=== PATIENT | male | born 1950 | race Caucasian/White ===

== ENCOUNTER 2017-07-02 11:47 | Inpatient (IN) | payer MEDICARE, OTHER ==
[2017-07-02] MEDS: ASPIRIN 81 MG TAB PO (12:27)
[2017-07-02 12:39] LABS: ADD MAN DIFF? NO
[2017-07-02 12:40] LABS: BASOPHIL # 0.1 10^3/ul (0.0-0.1); BASOPHILS % 0.9 % (0.0-2.0); EOSINOPHILS # 0.1 10^3/ul (0.0-0.5); HEMATOCRIT 39.2 % (42.0-52.0); HEMOGLOBIN 12.4 g/dl (14.0-18.0); LYMPHOCYTES # 1.9 10^3/ul (0.8-2.9); LYMPHOCYTES % 29.7 % (15.0-51.0); MEAN CORPUSCULAR HEMOGLOBIN 29.6 pg (29.0-33.0); MEAN CORPUSCULAR HGB CONC 31.6 g/dl (32.0-37.0); MEAN CORPUSCULAR VOLUME 93.6 fl (82.0-101.0); MEAN PLATELET VOLUME 10.8 fl (7.4-10.4); MONOCYTE # 0.5 10^3/ul (0.3-0.9); MONOCYTES % 8.1 % (0.0-11.0); NEUTROPHIL # 3.8 10^3/ul (1.6-7.5); NEUTROPHILS % 58.8 % (39.0-77.0); PLATELET COUNT 193 10^3/UL (140-415); RED BLOOD COUNT 4.19 10^6/ul (4.70-6.10); RED CELL DISTRIBUTION WIDTH 13.9 % (11.5-14.5)
[2017-07-02 12:40] LABS: WHITE BLOOD COUNT 6.4 10^3/ul (4.8-10.8)
[2017-07-02 13:00] LABS: ANION GAP 15 (8-16); BLOOD UREA NITROGEN 38 mg/dl (7-20); CALCIUM 9.1 mg/dl (8.4-10.2); CARBON DIOXIDE 28 mmol/L (21-31); CHLORIDE 108 mmol/L (97-110); CREATININE 1.92 mg/dl (0.61-1.24); GLUCOSE 104 mg/dl (70-220); SODIUM 146 mmol/L (135-144)
[2017-07-02] MEDS ORDERED: ONDANSETRON 4 MG INJ IV ×2 (14:00→14:30)
[2017-07-02] MEDS ORDERED: ACETAMINOPHEN 325 MG TAB PO ×2 (14:00→14:30)
[2017-07-02] MEDS ORDERED: morphine 2 MG INJ IV ×2 (14:30)
[2017-07-02] MEDS ORDERED: NACL 0.9% 3 ML SYG IV (14:30)
[2017-07-02] MEDS ORDERED: NITROGLYCERIN (SL) 0.4 MG TAB SL (14:30)
[2017-07-02] MEDS ORDERED: ACETAMINOPHEN 650 MG SUPP PR (14:30)
[2017-07-02] MEDS: HYDROCODONE/APAP (5/325) TAB PO (14:54)
[2017-07-02] MEDS: HEPARIN 1000 UNITS/ML 10 ML INJ IV (14:57)
[2017-07-02] MEDS: CLOPIDOGREL 75 MG TAB PO (15:03)
[2017-07-02 15:26] LABS: PROTIME 13.3 Sec (11.9-14.9)
[2017-07-02 15:27] LABS: PARTIAL THROMBOPLASTIN TIME 32.6 Sec (25.0-35.0)
[2017-07-02] MEDS: HEPARIN 25000 UNITS/250 ML 250 ML IV (16:36)
[2017-07-02 19:56] LABS: ADD MAN DIFF? NO
[2017-07-02 19:57] LABS: BASOPHIL # 0.1 10^3/ul (0.0-0.1); BASOPHILS % 0.8 % (0.0-2.0); EOSINOPHILS # 0.1 10^3/ul (0.0-0.5); EOSINOPHILS % 1.6 % (0.0-7.0); HEMATOCRIT 38.5 % (42.0-52.0); HEMOGLOBIN 11.9 g/dl (14.0-18.0); LYMPHOCYTES # 2.8 10^3/ul (0.8-2.9); LYMPHOCYTES % 35.6 % (15.0-51.0); MEAN CORPUSCULAR HGB CONC 30.9 g/dl (32.0-37.0); MEAN CORPUSCULAR VOLUME 93.7 fl (82.0-101.0); MEAN PLATELET VOLUME 10.8 fl (7.4-10.4); MONOCYTE # 0.6 10^3/ul (0.3-0.9); MONOCYTES % 8.1 % (0.0-11.0); NEUTROPHIL # 4.2 10^3/ul (1.6-7.5); NEUTROPHILS % 53.3 % (39.0-77.0); PLATELET COUNT 190 10^3/UL (140-415); RED BLOOD COUNT 4.11 10^6/ul (4.70-6.10)
[2017-07-02 19:57] LABS: WHITE BLOOD COUNT 7.9 10^3/ul (4.8-10.8)
[2017-07-02 20:09] LABS: ADD UMIC NO; UR ASCORBIC ACID NEGATIVE (NEGATIVE); UR BILIRUBIN (Dip) NEGATIVE (NEGATIVE); UR BLOOD (Dip) NEGATIVE (NEGATIVE); UR CLARITY CLEAR (CLEAR); UR COLOR YELLOW (YELLOW); UR GLUCOSE (Dip) NEGATIVE (NEGATIVE); UR KETONES (Dip) NEGATIVE (NEGATIVE); UR LEUKOCYTE ESTERASE (Dip) NEGATIVE Leu/ul (NEGATIVE); UR NITRITE (Dip) NEGATIVE (NEGATIVE); UR SPECIFIC GRAVITY (Dip) 1.021 (1.003-1.030); UR TOTAL PROTEIN (Dip) NEGATIVE (NEGATIVE); UR UROBILINOGEN (Dip) NEGATIVE (NEGATIVE)
[2017-07-02] MEDS: SOD CHLORIDE 0.9% 1,000 ML IV (20:11)
[2017-07-02 20:13] LABS: CREATINE KINASE 93 IU/L (23-200)
[2017-07-02 20:27] LABS: CK INDEX 2.3
[2017-07-02 20:30] LABS: CK-MB 2.11 ng/ml (0.0-2.4)
[2017-07-02 20:31] LABS: SODIUM,URINE RANDOM 63 mmol/L (30-90)
[2017-07-02 20:31] LABS: CREATININE,URINE RANDOM 183.73 mg/dl (20-370)
[2017-07-02 20:35] LABS: AMPHETAMINE/METHAMPHETAMINE Negative (NEGATIVE); BARBITURATES Negative (NEGATIVE); BENZODIAZEPINES Negative (NEGATIVE); CANNABINOIDS Negative (NEGATIVE); COCAINE Negative (NEGATIVE); OPIATES Negative (NEGATIVE)
[2017-07-02] MEDS: ATORVASTATIN 80 MG TAB PO (22:39)
[2017-07-02 23:35] LABS: CREATINE KINASE 85 IU/L (23-200)
[2017-07-02 23:38] LABS: PARTIAL THROMBOPLASTIN TIME 68.3 Sec (25.0-35.0)
[2017-07-02 23:42] LABS: CK INDEX 2.1
[2017-07-02 23:43] LABS: CK-MB 1.79 ng/ml (0.0-2.4)
[2017-07-03 01:37] LABS: CREATINE KINASE 86 IU/L (23-200)
[2017-07-03 01:50] LABS: CK INDEX 2.1
[2017-07-03] MEDS: PANTOPRAZOLE 40 MG INJ IV (06:00)
[2017-07-03] MEDS: DIPHENHYDRAMINE 50 MG CAP PO (07:00)
[2017-07-03] MEDS: DIAZEPAM 5 MG TAB PO (07:00)
[2017-07-03 07:35] LABS: ADD MAN DIFF? NO
[2017-07-03 07:41] LABS: BASOPHIL # 0.1 10^3/ul (0.0-0.1); BASOPHILS % 0.8 % (0.0-2.0); EOSINOPHILS # 0.1 10^3/ul (0.0-0.5); EOSINOPHILS % 2.3 % (0.0-7.0); HEMATOCRIT 36.6 % (42.0-52.0); HEMOGLOBIN 11.4 g/dl (14.0-18.0); LYMPHOCYTES # 2.1 10^3/ul (0.8-2.9); LYMPHOCYTES % 34.9 % (15.0-51.0); MEAN CORPUSCULAR HEMOGLOBIN 29.2 pg (29.0-33.0); MEAN CORPUSCULAR HGB CONC 31.1 g/dl (32.0-37.0); MEAN CORPUSCULAR VOLUME 93.8 fl (82.0-101.0); MEAN PLATELET VOLUME 11.1 fl (7.4-10.4); MONOCYTE # 0.5 10^3/ul (0.3-0.9); NEUTROPHIL # 3.2 10^3/ul (1.6-7.5); NEUTROPHILS % 53.3 % (39.0-77.0); PLATELET COUNT 181 10^3/UL (140-415); RED CELL DISTRIBUTION WIDTH 13.9 % (11.5-14.5)
[2017-07-03 07:52] LABS: HEMOGLOBIN A1C 5.5 % (0-5.9)
[2017-07-03 08:09] LABS: INR 1.06; PROTIME 13.9 Sec (11.9-14.9); PT RATIO 1.1
[2017-07-03 08:10] LABS: PARTIAL THROMBOPLASTIN TIME 62.6 Sec (25.0-35.0)
[2017-07-03 08:48] LABS: ALANINE AMINOTRANSFERASE 66 IU/L (13-69); ALBUMIN 3.7 g/dl (3.3-4.9); ALBUMIN/GLOBULIN RATIO 1.15; ALKALINE PHOSPHATASE 87 IU/L (42-121); ANION GAP 12 (8-16); ASPARTATE AMINO TRANSFERASE 48 IU/L (15-46); BILIRUBIN,INDIRECT 0.5 mg/dl (0-1.1); BILIRUBIN,TOTAL 0.5 mg/dl (0.2-1.3); BLOOD UREA NITROGEN 28 mg/dl (7-20); CALCIUM 8.7 mg/dl (8.4-10.2); CARBON DIOXIDE 25 mmol/L (21-31); CHLORIDE 111 mmol/L (97-110); CHOL/HDL RATIO 6.1 RATIO; CHOLESTEROL 221 mg/dl (100-200); GLUCOSE 100 mg/dl (70-220); HDL CHOLESTEROL 36 mg/dl (30-78); LDL CHOLESTEROL,CALCULATED 156 mg/dl; MAGNESIUM 2.1 mg/dl (1.7-2.5); SODIUM 144 mmol/L (135-144); TOTAL PROTEIN 6.9 g/dl (6.1-8.1); TRIGLYCERIDES 144 mg/dl (0-149)
[2017-07-03 09:00] LABS: FREE THYROXINE INDEX (Calc) 0.48 ug/ml (0.65-3.89); T3 UPTAKE 29.9 % (23.5-40.5)
[2017-07-03 09:09] LABS: T4 (THYROXINE) 1.6 ug/dl (5.5-11.0)
[2017-07-03] MEDS: SOD CHLORIDE 0.9% 1,000 ML IV ×3 (11:14→21:14)
[2017-07-03] MEDS ORDERED: MIDAZOLAM 1 MG/ML 2 ML INJ (13:06)
[2017-07-03] MEDS ORDERED: FENTAnyl 50 MCG/ML VIAL (13:06)
[2017-07-03] MEDS ORDERED: HEPARIN 1000 UNITS/ML 10 ML INJ (13:07)
[2017-07-03] MEDS ORDERED: LIDOCAINE 1% (MDV) 20 ML INJ (13:07)
[2017-07-03] MEDS ORDERED: NITROGLYCERIN (IC) 100 MCG/ML INJ (13:07)
[2017-07-03] MEDS ORDERED: VERAPAMIL 5 MG INJ (13:07)
[2017-07-03] MEDS ORDERED: ONDANSETRON 4 MG INJ IV (14:00)
[2017-07-03] MEDS ORDERED: ACETAMINOPHEN 325 MG TAB PO (14:00)
[2017-07-03] MEDS ORDERED: morphine LIQ (10 MG/5 ML) CUP PO (15:30)
[2017-07-03] MEDS ORDERED: CEFAZOLIN 2 GM/50 ML (PMX) 50 ML IVPB (17:00)
[2017-07-03 19:27] LABS: ADD MAN DIFF? NO
[2017-07-03 19:30] LABS: WHITE BLOOD COUNT 5.3 10^3/ul (4.8-10.8)
[2017-07-03 19:30] LABS: BASOPHIL # 0.1 10^3/ul (0.0-0.1); BASOPHILS % 1.1 % (0.0-2.0); EOSINOPHILS # 0.1 10^3/ul (0.0-0.5); EOSINOPHILS % 1.9 % (0.0-7.0); HEMATOCRIT 37.4 % (42.0-52.0); HEMOGLOBIN 11.5 g/dl (14.0-18.0); LYMPHOCYTES # 1.8 10^3/ul (0.8-2.9); LYMPHOCYTES % 33.5 % (15.0-51.0); MEAN CORPUSCULAR HGB CONC 30.7 g/dl (32.0-37.0); MEAN CORPUSCULAR VOLUME 94.4 fl (82.0-101.0); MONOCYTE # 0.4 10^3/ul (0.3-0.9); MONOCYTES % 6.9 % (0.0-11.0); NEUTROPHIL # 2.9 10^3/ul (1.6-7.5); PLATELET COUNT 202 10^3/UL (140-415); RED BLOOD COUNT 3.96 10^6/ul (4.70-6.10); RED CELL DISTRIBUTION WIDTH 13.9 % (11.5-14.5)
[2017-07-03 19:51] LABS: INR 1.01; PROTIME 13.4 Sec (11.9-14.9)
[2017-07-03 19:52] LABS: PARTIAL THROMBOPLASTIN TIME 32.9 Sec (25.0-35.0)
[2017-07-03] MEDS: ATORVASTATIN 80 MG TAB PO (21:14)
[2017-07-03] MEDS: HEPARIN 1000 UNITS/ML 10 ML INJ IV (22:59)
[2017-07-03] MEDS: HEPARIN 25000 UNITS/250 ML 250 ML IV (23:06)
[2017-07-04 01:15] LABS: PARTIAL THROMBOPLASTIN TIME 161.7 Sec (25.0-35.0)
[2017-07-04] MEDS: HEPARIN 25000 UNITS/250 ML 250 ML IV ×2 (01:29→02:42)
[2017-07-04] MEDS: LEVOTHYROXINE 100 MCG TAB PO (06:54)
[2017-07-04] MEDS: PANTOPRAZOLE 40 MG INJ IV (06:54)
[2017-07-04 07:39] LABS: ADD MAN DIFF? NO
[2017-07-04 07:43] LABS: WHITE BLOOD COUNT 5.6 10^3/ul (4.8-10.8)
[2017-07-04 07:43] LABS: BASOPHIL # 0.1 10^3/ul (0.0-0.1); BASOPHILS % 0.9 % (0.0-2.0); EOSINOPHILS # 0.1 10^3/ul (0.0-0.5); EOSINOPHILS % 2.1 % (0.0-7.0); HEMATOCRIT 35.7 % (42.0-52.0); LYMPHOCYTES # 1.9 10^3/ul (0.8-2.9); LYMPHOCYTES % 33.2 % (15.0-51.0); MEAN CORPUSCULAR HEMOGLOBIN 28.9 pg (29.0-33.0); MEAN CORPUSCULAR HGB CONC 30.8 g/dl (32.0-37.0); MEAN CORPUSCULAR VOLUME 93.7 fl (82.0-101.0); MEAN PLATELET VOLUME 10.6 fl (7.4-10.4); MONOCYTE # 0.4 10^3/ul (0.3-0.9); MONOCYTES % 7.4 % (0.0-11.0); NEUTROPHIL # 3.2 10^3/ul (1.6-7.5); NEUTROPHILS % 55.9 % (39.0-77.0); PLATELET COUNT 187 10^3/UL (140-415); RED BLOOD COUNT 3.81 10^6/ul (4.70-6.10)
[2017-07-04 08:01] LABS: ANION GAP 10 (8-16); BLOOD UREA NITROGEN 18 mg/dl (7-20); CALCIUM 8.5 mg/dl (8.4-10.2); CARBON DIOXIDE 27 mmol/L (21-31); CHLORIDE 111 mmol/L (97-110); CREATININE 1.15 mg/dl (0.61-1.24); GLUCOSE 98 mg/dl (70-220); MAGNESIUM 2.1 mg/dl (1.7-2.5); PHOSPHORUS 2.8 mg/dl (2.5-4.9); POTASSIUM 4.4 mmol/L (3.5-5.1); SODIUM 144 mmol/L (135-144)
[2017-07-04] MEDS: ASPIRIN 81 MG TAB PO (09:01)
[2017-07-04 14:01] LABS: CREATININE, RANDOM URINE 201 mg/dL (20-370); MICROALBUMIN 2.3 mg/dL; MICROALBUMIN/CREATININE RATIO 11 (<30)
[2017-07-04 16:07] LABS: PARTIAL THROMBOPLASTIN TIME 49.5 Sec (25.0-35.0)
[2017-07-04] MEDS: ATORVASTATIN 80 MG TAB PO (21:11)
[2017-07-05 00:21] LABS: PARTIAL THROMBOPLASTIN TIME 54.2 Sec (25.0-35.0)
[2017-07-05] MEDS: LEVOTHYROXINE 100 MCG TAB PO (05:13)
[2017-07-05] MEDS: PANTOPRAZOLE 40 MG INJ IV (05:13)
[2017-07-05] MEDS: PAPAVERINE 60 MG INJ (06:29)
[2017-07-05] MEDS ORDERED: SODIUM CL BACTERIOSTATIC 30 ML INJ (06:29)
[2017-07-05] MEDS: HEPARIN 1000 UNITS/ML 10 ML INJ (06:29)
[2017-07-05] MEDS: VANCOMYCIN 1 GM INJ (06:29)
[2017-07-05] MEDS ORDERED: MIDAZOLAM 5 ML ×2 (06:33→08:24)
[2017-07-05] MEDS ORDERED: POTASSIUM CHLORIDE 40 MEQ INJ (06:39)
[2017-07-05] MEDS ORDERED: HEPARIN 1000 UNITS/ML 10 ML INJ ×2 (06:39→08:08)
[2017-07-05] MEDS ORDERED: MAGNESIUM SULFATE (MG) 50% 10 ML INJ (06:39)
[2017-07-05] MEDS ORDERED: CA CHLORIDE 10% 10 ML SYRINGE (06:40)
[2017-07-05] MEDS ORDERED: PHENYLephrine 10 MG INJ (06:40)
[2017-07-05] MEDS ORDERED: MANNITOL 20% 250 ML IV (06:40)
[2017-07-05] MEDS ORDERED: ALBUMIN HUMAN 25% 200 ML (06:40)
[2017-07-05] MEDS ORDERED: LIDOCAINE 100 MG SYRINGE (06:40)
[2017-07-05] MEDS ORDERED: NA BICARBONATE 8.4% 50 ML SYG (06:42)
[2017-07-05] MEDS ORDERED: PHENYLephrine (100 MCG/ML) 5ML SYG (06:50)
[2017-07-05 06:55] LABS: ADD MAN DIFF? NO
[2017-07-05] MEDS ORDERED: DOPamine-D5W 1.6 MG/ML 250 ML (07:00)
[2017-07-05] MEDS: DESMOPRESSIN IVPB (07:00)
[2017-07-05] MEDS ORDERED: INSULIN HUMAN REGULAR 100 UNIT in SOD CHLORIDE 0.9% 99 ML IVPB (07:00)
[2017-07-05] MEDS ORDERED: NITROGLYCERIN 50 MG/D5W 250 ML BTL (07:00)
[2017-07-05] MEDS ORDERED: TRANEXAMIC ACID 1,000 MG/10 ML VIAL (07:00)
[2017-07-05] MEDS: ASPIRIN 600 MG SUPP PR (07:00)
[2017-07-05] MEDS: HEPARIN (10000 UNITS/ML) 10,000 UNIT, MILRINONE LACTATE 10 MG in SOD CHLORIDE 0.9% 1,00... SC (07:00)
[2017-07-05] MEDS: SOD CHLORIDE 0.9% IVPB (07:00)
[2017-07-05] MEDS ORDERED: EPINEPHrine 4 MG in DEXTROSE 5% 246 ML IV (07:00)
[2017-07-05 07:05] LABS: BASOPHILS % 0.3 % (0.0-2.0); EOSINOPHILS # 0.1 10^3/ul (0.0-0.5); EOSINOPHILS % 2.4 % (0.0-7.0); HEMATOCRIT 36.2 % (42.0-52.0); HEMOGLOBIN 11.4 g/dl (14.0-18.0); LYMPHOCYTES # 1.9 10^3/ul (0.8-2.9); LYMPHOCYTES % 31.9 % (15.0-51.0); MEAN CORPUSCULAR HEMOGLOBIN 29.5 pg (29.0-33.0); MEAN CORPUSCULAR HGB CONC 31.5 g/dl (32.0-37.0); MEAN CORPUSCULAR VOLUME 93.5 fl (82.0-101.0); MONOCYTE # 0.5 10^3/ul (0.3-0.9); MONOCYTES % 8.2 % (0.0-11.0); NEUTROPHIL # 3.4 10^3/ul (1.6-7.5); NEUTROPHILS % 56.9 % (39.0-77.0); PLATELET COUNT 203 10^3/UL (140-415); RED BLOOD COUNT 3.87 10^6/ul (4.70-6.10); RED CELL DISTRIBUTION WIDTH 13.8 % (11.5-14.5)
[2017-07-05 07:36] LABS: ANION GAP 13 (8-16); BLOOD UREA NITROGEN 17 mg/dl (7-20); CALCIUM 8.8 mg/dl (8.4-10.2); CARBON DIOXIDE 27 mmol/L (21-31); CHLORIDE 111 mmol/L (97-110); CREATININE 1.28 mg/dl (0.61-1.24); GLUCOSE 101 mg/dl (70-220); MAGNESIUM 2.1 mg/dl (1.7-2.5); PHOSPHORUS 3.1 mg/dl (2.5-4.9); SODIUM 147 mmol/L (135-144)
[2017-07-05] MEDS ORDERED: CEFAZOLIN 1 GM INJ ×3 (07:42→10:18)
[2017-07-05] MEDS ORDERED: FUROSEMIDE 20 MG INJ ×3 (08:12→09:28)
[2017-07-05] MEDS: ASPIRIN 81 MG TAB PO (09:00)
[2017-07-05 09:48] LABS: TYPE AND SCREEN 1
[2017-07-05] MEDS ORDERED: PROTAMINE 250 MG INJ (09:56)
[2017-07-05] MEDS ORDERED: LIDOCAINE 2% (SDV) 5 ML INJ (10:57)
[2017-07-05] MEDS ORDERED: ETOMIDATE 20 MG INJ (10:57)
[2017-07-05] MEDS ORDERED: ROCURONIUM 50 MG INJ (10:57)
[2017-07-05] MEDS: MILRINONE LACTATE 2 MG in SOD CHLORIDE 0.9% 50 ML IV (11:25)
[2017-07-05] MEDS: NORepinephrine 8MG/250 ML (PMX 250 ML IV (11:25)
[2017-07-05] MEDS: PHENYLephrine 20MG IN 250 ML 250 ML IV (11:25)
[2017-07-05] MEDS ORDERED: DEXTROSE 50% 50 ML SYRINGE IV ×2 (11:30)
[2017-07-05] MEDS ORDERED: NITROGLYCERIN 50 MG/D5W (PMX) 250 ML IV (11:30)
[2017-07-05] MEDS ORDERED: MAGNESIUM SULFATE 1 GM/D5W 100 ML IVPB (11:30)
[2017-07-05] MEDS: ASPIRIN (EC) 81 MG TAB PO (11:30)
[2017-07-05] MEDS ORDERED: DOPamine-D5W 1.6 MG/ML 250 ML IV (11:30)
[2017-07-05] MEDS: HYDROmorphONE 0.5 MG/0.5 ML SYG IV ×6 (11:44→16:41)
[2017-07-05] MEDS: CEFAZOLIN 1 GM/50 ML (PMX) 50 ML IVPB ×2 (11:44→19:47)
[2017-07-05] MEDS: NITROGLYCERIN 50 MG/D5W (PMX) 250 ML IV (11:44)
[2017-07-05] MEDS: DOPamine-D5W 1.6 MG/ML 250 ML IV (11:49)
[2017-07-05] MEDS: ACCU-CHEK XX ×13 (11:53→23:00)
[2017-07-05] MEDS: INSULIN HUMAN REGULAR 100 UNIT in SOD CHLORIDE 0.9% 99 ML IV (12:14)
[2017-07-05] MEDS: POTASSIUM CHLORIDE 40 MEQ, CALCIUM CHLORIDE 10% 1 GM in DEXTROSE 5%-0.225% NACL 1,000 ML IV (12:25)
[2017-07-05 12:26] LABS: AADO2 Arterial 378.7 mmHg (7.0-24.0); Arterial Base Excess -1.7 mmol/L (-3.0-3); Arterial Blood Gas Oxygen Sat 95.2 mmHG (95.0-98.0); Arterial COHb 0.3 % (0.0-3.0); Arterial Fraction of Oxyhgb 94.7 % (93.0-99.0); Arterial HCO3 22.5 mmol/L (22.0-26.0); Arterial MetHb 0.2 % (0.0-1.5); Arterial Total Hemglobin 11.5 g/dl (12.0-18.0); Arterial pCO2 36.3 mmhg (35-45); MODE VENT - AC; Site A-Line
[2017-07-05 12:29] LABS: AADO2 Mixed Venous 421.3 mmHg; MODE VENT - AC; MetHgb Mixed Venous 0.4 %; Mixed Venous Base Excess -1.1 mmol/L; Mixed Venous COHb 0.3 %; Mixed Venous Fraction OxyHgb 63.7 %; Mixed Venous Oxygen Sat 64.1 mmHG (65.0-75.0); Mixed Venous Total Hemglobin 11.6 g/dl; Sample Type BLMV; Site OTHER
[2017-07-05] MEDS: KETOROLAC 15 MG INJ IV ×2 (12:40→20:50)
[2017-07-05 12:53] LABS: ADD MAN DIFF? NO
[2017-07-05 12:54] LABS: BASOPHILS % 0.4 % (0.0-2.0); EOSINOPHILS # 0.1 10^3/ul (0.0-0.5); EOSINOPHILS % 0.8 % (0.0-7.0); HEMATOCRIT 34.5 % (42.0-52.0); HEMOGLOBIN 11.1 g/dl (14.0-18.0); LYMPHOCYTES # 1.9 10^3/ul (0.8-2.9); LYMPHOCYTES % 18.3 % (15.0-51.0); MEAN CORPUSCULAR HEMOGLOBIN 29.5 pg (29.0-33.0); MEAN CORPUSCULAR HGB CONC 32.2 g/dl (32.0-37.0); MEAN CORPUSCULAR VOLUME 91.8 fl (82.0-101.0); MEAN PLATELET VOLUME 10.3 fl (7.4-10.4); MONOCYTE # 0.7 10^3/ul (0.3-0.9); MONOCYTES % 6.5 % (0.0-11.0); NEUTROPHIL # 7.5 10^3/ul (1.6-7.5); PLATELET COUNT 198 10^3/UL (140-415); RED BLOOD COUNT 3.76 10^6/ul (4.70-6.10); RED CELL DISTRIBUTION WIDTH 13.6 % (11.5-14.5)
[2017-07-05 12:54] LABS: WHITE BLOOD COUNT 10.3 10^3/ul (4.8-10.8)
[2017-07-05 13:31] LABS: INR 1.13; PROTIME 14.7 Sec (11.9-14.9); PT RATIO 1.1
[2017-07-05 13:32] LABS: PARTIAL THROMBOPLASTIN TIME 29.7 Sec (25.0-35.0)
[2017-07-05 13:33] LABS: ANION GAP 16 (8-16); BLOOD UREA NITROGEN 17 mg/dl (7-20); CALCIUM 8.9 mg/dl (8.4-10.2); CARBON DIOXIDE 23 mmol/L (21-31); CHLORIDE 110 mmol/L (97-110); CREATININE 1.14 mg/dl (0.61-1.24); GLUCOSE 146 mg/dl (70-220); MAGNESIUM 2.8 mg/dl (1.7-2.5); SODIUM 145 mmol/L (135-144)
[2017-07-05] MEDS: ASPIRIN 300 MG SUPP PR (13:52)
[2017-07-05] MEDS: POTASSIUM CHLORIDE 50 ML IVPB ×2 (14:11→15:40)
[2017-07-05] MEDS: ALBUMIN HUMAN 5% 250 ML IV ×4 (16:59→22:53)
[2017-07-05] MEDS: FAMOTIDINE 20 MG INJ IV (19:47)
[2017-07-05] MEDS: FAMOTIDINE 20 MG TAB PO (19:59)
[2017-07-05] MEDS: ATORVASTATIN 80 MG TAB PO (21:00)
[2017-07-05] MEDS ORDERED: IPRATROPIUM (HFA) 12.9 GM INHALER INH (21:30)
[2017-07-05] MEDS ORDERED: ALBUTEROL HFA 8 GM INHALER INH (21:30)
[2017-07-06] MEDS: ACCU-CHEK XX ×9 (00:35→08:55)
[2017-07-06 00:44] LABS: HEMATOCRIT 23.9 % (42.0-52.0); HEMOGLOBIN 7.6 g/dl (14.0-18.0)
[2017-07-06 02:02] LABS: IMMEDIATE SPIN CROSSMATCH 1 3
[2017-07-06] MEDS: KETOROLAC 15 MG INJ IV ×3 (03:17→20:42)
[2017-07-06 03:43] LABS: Arterial Base Excess -2.6 mmol/L (-3.0-3); Arterial Blood Gas Oxygen Sat 97.6 mmHG (95.0-98.0); Arterial COHb 0 % (0.0-3.0); Arterial Fraction of Oxyhgb 97.4 % (93.0-99.0); Arterial HCO3 21.2 mmol/L (22.0-26.0); Arterial MetHb 0.2 % (0.0-1.5); Arterial Total Hemglobin 9.4 g/dl (12.0-18.0); Arterial pCO2 32.7 mmhg (35-45); Blood Gas PS 10; MODE VENT - CPAP; Site A-Line
[2017-07-06] MEDS: CEFAZOLIN 1 GM/50 ML (PMX) 50 ML IVPB (03:59)
[2017-07-06] MEDS: OXYCODONE/ACETAMINOPHEN (5/325) TAB PO ×3 (04:32→16:51)
[2017-07-06] MEDS: POTASSIUM CHLORIDE 40 MEQ, CALCIUM CHLORIDE 10% 1 GM in DEXTROSE 5%-0.225% NACL 1,000 ML IV ×2 (04:33→21:28)
[2017-07-06] MEDS: PANTOPRAZOLE 40 MG INJ IV (05:12)
[2017-07-06] MEDS: LEVOTHYROXINE 200 MCG VIAL IV (05:12)
[2017-07-06 05:45] LABS: ADD MAN DIFF? NO
[2017-07-06 06:01] LABS: BASOPHILS % 0.3 % (0.0-2.0); EOSINOPHILS % 0.2 % (0.0-7.0); HEMATOCRIT 26.7 % (42.0-52.0); HEMOGLOBIN 8.5 g/dl (14.0-18.0); LYMPHOCYTES # 0.8 10^3/ul (0.8-2.9); LYMPHOCYTES % 13.3 % (15.0-51.0); MEAN CORPUSCULAR HEMOGLOBIN 29.9 pg (29.0-33.0); MEAN CORPUSCULAR HGB CONC 31.8 g/dl (32.0-37.0); MEAN PLATELET VOLUME 11.7 fl (7.4-10.4); MONOCYTE # 0.5 10^3/ul (0.3-0.9); MONOCYTES % 8.1 % (0.0-11.0); NEUTROPHIL # 4.9 10^3/ul (1.6-7.5); NEUTROPHILS % 77.8 % (39.0-77.0); PLATELET COUNT 164 10^3/UL (140-415); RED BLOOD COUNT 2.84 10^6/ul (4.70-6.10); RED CELL DISTRIBUTION WIDTH 13.7 % (11.5-14.5)
[2017-07-06 06:01] LABS: WHITE BLOOD COUNT 6.3 10^3/ul (4.8-10.8)
[2017-07-06 06:24] LABS: INR 1.25; PROTIME 15.9 Sec (11.9-14.9); PT RATIO 1.2
[2017-07-06 06:25] LABS: PARTIAL THROMBOPLASTIN TIME 31.5 Sec (25.0-35.0)
[2017-07-06 06:30] LABS: ANION GAP 17 (8-16); BLOOD UREA NITROGEN 17 mg/dl (7-20); CARBON DIOXIDE 24 mmol/L (21-31); CHLORIDE 111 mmol/L (97-110); GLUCOSE 138 mg/dl (70-220); MAGNESIUM 2.2 mg/dl (1.7-2.5); POTASSIUM 4.7 mmol/L (3.5-5.1); SODIUM 147 mmol/L (135-144)
[2017-07-06] MEDS: METOPROLOL 25 MG TAB PO ×2 (09:24→20:09)
[2017-07-06] MEDS: FAMOTIDINE 20 MG TAB PO ×2 (09:55→20:07)
[2017-07-06] MEDS: ASPIRIN 81 MG TAB PO (09:55)
[2017-07-06] MEDS: SOD CHLORIDE 0.9% 250 ML IV (10:23)
[2017-07-06 11:18] LABS: HEMATOCRIT 25.1 % (42.0-52.0)
[2017-07-06] MEDS: ATORVASTATIN 80 MG TAB PO (20:07)
[2017-07-07 05:15] LABS: ADD MAN DIFF? NO
[2017-07-07 05:26] LABS: WHITE BLOOD COUNT 7.3 10^3/ul (4.8-10.8)
[2017-07-07 05:26] LABS: BASOPHILS % 0.3 % (0.0-2.0); EOSINOPHILS # 0.1 10^3/ul (0.0-0.5); EOSINOPHILS % 1.5 % (0.0-7.0); HEMATOCRIT 23.4 % (42.0-52.0); HEMOGLOBIN 7.5 g/dl (14.0-18.0); LYMPHOCYTES # 1.3 10^3/ul (0.8-2.9); LYMPHOCYTES % 18.1 % (15.0-51.0); MEAN CORPUSCULAR HGB CONC 32.1 g/dl (32.0-37.0); MEAN CORPUSCULAR VOLUME 93.6 fl (82.0-101.0); MEAN PLATELET VOLUME 11.7 fl (7.4-10.4); MONOCYTE # 0.5 10^3/ul (0.3-0.9); MONOCYTES % 7.4 % (0.0-11.0); NEUTROPHIL # 5.3 10^3/ul (1.6-7.5); NEUTROPHILS % 72.2 % (39.0-77.0); PLATELET COUNT 148 10^3/UL (140-415); RED CELL DISTRIBUTION WIDTH 14.4 % (11.5-14.5)
[2017-07-07 06:11] LABS: ANION GAP 14 (8-16); BLOOD UREA NITROGEN 24 mg/dl (7-20); CALCIUM 8.6 mg/dl (8.4-10.2); CARBON DIOXIDE 25 mmol/L (21-31); CHLORIDE 110 mmol/L (97-110); CREATININE 1.47 mg/dl (0.61-1.24); GLUCOSE 120 mg/dl (70-220); MAGNESIUM 2.2 mg/dl (1.7-2.5); PHOSPHORUS 2.7 mg/dl (2.5-4.9); POTASSIUM 4.5 mmol/L (3.5-5.1); SODIUM 144 mmol/L (135-144)
[2017-07-07] MEDS: LEVOTHYROXINE 100 MCG TAB PO (06:13)
[2017-07-07] MEDS: PANTOPRAZOLE 40 MG INJ IV (06:14)
[2017-07-07] MEDS ORDERED: morphine 2 MG INJ (08:18)
[2017-07-07] MEDS: ASPIRIN 81 MG TAB PO (08:32)
[2017-07-07] MEDS: FAMOTIDINE 20 MG TAB PO ×2 (08:32→21:14)
[2017-07-07] MEDS: morphine 2 MG INJ IV (08:32)
[2017-07-07] MEDS: METOPROLOL 25 MG TAB PO (08:33)
[2017-07-07 11:40] LABS: IRON 19 ug/dl (35-150)
[2017-07-07 11:49] LABS: % IRON SATURATION 8 % SAT (22-52); TOTAL IRON BINDING CAPACITY 235 ug/dl (241-421)
[2017-07-07] MEDS: HYDROmorphONE 0.5 MG/0.5 ML SYG IV (14:22)
[2017-07-07] MEDS: POTASSIUM CHLORIDE 40 MEQ, CALCIUM CHLORIDE 10% 1 GM in DEXTROSE 5%-0.225% NACL 1,000 ML IV (14:38)
[2017-07-07] MEDS: SOD FERRIC GLUC COMPLX 125 MG in SOD CHLORIDE 0.9% 100 ML IVPB (17:47)
[2017-07-07] MEDS: ATORVASTATIN 80 MG TAB PO (21:14)
[2017-07-08] MEDS: PANTOPRAZOLE 40 MG INJ IV (06:03)
[2017-07-08] MEDS: LEVOTHYROXINE 100 MCG TAB PO (06:04)
[2017-07-08 07:03] LABS: ADD MAN DIFF? NO
[2017-07-08 07:05] LABS: WHITE BLOOD COUNT 9.5 10^3/ul (4.8-10.8)
[2017-07-08 07:05] LABS: BASOPHILS % 0.4 % (0.0-2.0); EOSINOPHILS # 0.1 10^3/ul (0.0-0.5); EOSINOPHILS % 1.3 % (0.0-7.0); HEMOGLOBIN 8.3 g/dl (14.0-18.0); LYMPHOCYTES # 1.9 10^3/ul (0.8-2.9); LYMPHOCYTES % 20.2 % (15.0-51.0); MEAN CORPUSCULAR HEMOGLOBIN 29.6 pg (29.0-33.0); MEAN CORPUSCULAR HGB CONC 31.9 g/dl (32.0-37.0); MEAN CORPUSCULAR VOLUME 92.9 fl (82.0-101.0); MEAN PLATELET VOLUME 11.7 fl (7.4-10.4); MONOCYTE # 0.6 10^3/ul (0.3-0.9); MONOCYTES % 6.7 % (0.0-11.0); NEUTROPHIL # 6.7 10^3/ul (1.6-7.5); NEUTROPHILS % 70.6 % (39.0-77.0); PLATELET COUNT 225 10^3/UL (140-415); RED CELL DISTRIBUTION WIDTH 14.3 % (11.5-14.5)
[2017-07-08 07:44] LABS: ANION GAP 15 (8-16); BLOOD UREA NITROGEN 21 mg/dl (7-20); CALCIUM 8.8 mg/dl (8.4-10.2); CARBON DIOXIDE 26 mmol/L (21-31); CHLORIDE 108 mmol/L (97-110); CREATININE 1.19 mg/dl (0.61-1.24); GLUCOSE 106 mg/dl (70-220); MAGNESIUM 2.1 mg/dl (1.7-2.5); PHOSPHORUS 2.7 mg/dl (2.5-4.9); POTASSIUM 4.7 mmol/L (3.5-5.1); SODIUM 144 mmol/L (135-144)
[2017-07-08 07:52] LABS: FREE T4 (FREE THYROXINE) 0.63 ng/dl (0.78-2.44)
[2017-07-08 08:05] LABS: HEPATITIS B SURFACE ANTIGEN NEGATIVE (NEGATIVE)
[2017-07-08] MEDS: ASPIRIN 81 MG TAB PO (08:17)
[2017-07-08] MEDS: FAMOTIDINE 20 MG TAB PO ×2 (08:17→22:15)
[2017-07-08] MEDS: OXYCODONE/ACETAMINOPHEN (5/325) TAB PO ×2 (08:17→22:15)
[2017-07-08 08:23] LABS: HEPATITIS C VIRAL ANTIBODY NEGATIVE (NEGATIVE)
[2017-07-08] MEDS: ENOXAPARIN 40 MG/0.4 ML SYG SC (10:11)
[2017-07-08] MEDS: METOPROLOL 25 MG TAB PO (11:00)
[2017-07-08] MEDS: SOD FERRIC GLUC COMPLX 125 MG in SOD CHLORIDE 0.9% 100 ML IVPB (17:01)
[2017-07-08] MEDS: ATORVASTATIN 80 MG TAB PO (22:15)
[2017-07-09] MEDS: PANTOPRAZOLE 40 MG INJ IV (06:00)
[2017-07-09] MEDS: LEVOTHYROXINE 100 MCG TAB PO (06:23)
[2017-07-09 07:40] LABS: ADD MAN DIFF? NO
[2017-07-09 07:47] LABS: BASOPHIL # 0.1 10^3/ul (0.0-0.1); BASOPHILS % 0.8 % (0.0-2.0); EOSINOPHILS # 0.2 10^3/ul (0.0-0.5); HEMATOCRIT 30.7 % (42.0-52.0); HEMOGLOBIN 9.6 g/dl (14.0-18.0); LYMPHOCYTES # 2.7 10^3/ul (0.8-2.9); LYMPHOCYTES % 25.7 % (15.0-51.0); MEAN CORPUSCULAR HEMOGLOBIN 29.4 pg (29.0-33.0); MEAN CORPUSCULAR HGB CONC 31.3 g/dl (32.0-37.0); MEAN CORPUSCULAR VOLUME 94.2 fl (82.0-101.0); MEAN PLATELET VOLUME 11.3 fl (7.4-10.4); MONOCYTE # 0.7 10^3/ul (0.3-0.9); MONOCYTES % 7.1 % (0.0-11.0); NEUTROPHIL # 6.5 10^3/ul (1.6-7.5); NEUTROPHILS % 62.9 % (39.0-77.0); NUCLEATED RED BLOOD CELLS% 0.2 /100WBC (0.0-0.0); PLATELET COUNT 306 10^3/UL (140-415); RED BLOOD COUNT 3.26 10^6/ul (4.70-6.10); RED CELL DISTRIBUTION WIDTH 14.1 % (11.5-14.5)
[2017-07-09 07:47] LABS: WHITE BLOOD COUNT 10.4 10^3/ul (4.8-10.8)
[2017-07-09 08:07] LABS: ANION GAP 15 (8-16); BLOOD UREA NITROGEN 16 mg/dl (7-20); CARBON DIOXIDE 26 mmol/L (21-31); CHLORIDE 110 mmol/L (97-110); CREATININE 1.12 mg/dl (0.61-1.24); GLUCOSE 97 mg/dl (70-220); MAGNESIUM 2.2 mg/dl (1.7-2.5); PHOSPHORUS 2.9 mg/dl (2.5-4.9); POTASSIUM 4.4 mmol/L (3.5-5.1); SODIUM 147 mmol/L (135-144)
[2017-07-09] MEDS: ASPIRIN 81 MG TAB PO (09:11)
[2017-07-09] MEDS: FAMOTIDINE 20 MG TAB PO ×2 (09:11→20:37)
[2017-07-09] MEDS: METOPROLOL 25 MG TAB PO ×2 (09:11→20:37)
[2017-07-09] MEDS: ENOXAPARIN 40 MG/0.4 ML SYG SC (09:14)
[2017-07-09] MEDS: HYDROCODONE/APAP (5/325) TAB PO (09:18)
[2017-07-09] MEDS: CEFAZOLIN 1 GM/50 ML (PMX) 50 ML IVPB ×2 (15:36→20:37)
[2017-07-09] MEDS: ENOXAPARIN 100 MG/ML SYG SC (15:39)
[2017-07-09] MEDS: SOD FERRIC GLUC COMPLX 125 MG in SOD CHLORIDE 0.9% 100 ML IVPB (16:29)
[2017-07-09] MEDS: ATORVASTATIN 80 MG TAB PO (20:36)
[2017-07-10] MEDS: OXYCODONE/ACETAMINOPHEN (5/325) TAB PO (01:31)
[2017-07-10] MEDS: PANTOPRAZOLE 40 MG INJ IV (06:08)
[2017-07-10] MEDS: LEVOTHYROXINE 100 MCG TAB PO (06:08)
[2017-07-10] MEDS: CEFAZOLIN 1 GM/50 ML (PMX) 50 ML IVPB ×3 (06:08→20:26)
[2017-07-10 06:52] LABS: ADD MAN DIFF? NO
[2017-07-10 06:56] LABS: BASOPHIL # 0.1 10^3/ul (0.0-0.1); BASOPHILS % 0.5 % (0.0-2.0); EOSINOPHILS # 0.1 10^3/ul (0.0-0.5); EOSINOPHILS % 0.6 % (0.0-7.0); HEMATOCRIT 26.7 % (42.0-52.0); HEMOGLOBIN 8.4 g/dl (14.0-18.0); LYMPHOCYTES # 1.4 10^3/ul (0.8-2.9); LYMPHOCYTES % 14.2 % (15.0-51.0); MEAN CORPUSCULAR HEMOGLOBIN 29.4 pg (29.0-33.0); MEAN CORPUSCULAR HGB CONC 31.5 g/dl (32.0-37.0); MEAN CORPUSCULAR VOLUME 93.4 fl (82.0-101.0); MONOCYTE # 0.9 10^3/ul (0.3-0.9); MONOCYTES % 8.7 % (0.0-11.0); NEUTROPHIL # 7.6 10^3/ul (1.6-7.5); NEUTROPHILS % 74.5 % (39.0-77.0); NUCLEATED RED BLOOD CELLS # 0.1 10^3/ul (0.0-0.0); NUCLEATED RED BLOOD CELLS% 0.5 /100WBC (0.0-0.0); PLATELET COUNT 274 10^3/UL (140-415); RED BLOOD COUNT 2.86 10^6/ul (4.70-6.10); RED CELL DISTRIBUTION WIDTH 14.1 % (11.5-14.5)
[2017-07-10 06:56] LABS: WHITE BLOOD COUNT 10.1 10^3/ul (4.8-10.8)
[2017-07-10 07:16] LABS: ANION GAP 15 (8-16); BLOOD UREA NITROGEN 15 mg/dl (7-20); CALCIUM 8.5 mg/dl (8.4-10.2); CARBON DIOXIDE 25 mmol/L (21-31); CHLORIDE 107 mmol/L (97-110); CREATININE 1.25 mg/dl (0.61-1.24); GLUCOSE 107 mg/dl (70-220); POTASSIUM 4.1 mmol/L (3.5-5.1); SODIUM 143 mmol/L (135-144)
[2017-07-10] MEDS: ASPIRIN 325 MG TAB PO (08:40)
[2017-07-10] MEDS: BENAZEPRIL 10 MG TAB PO (08:40)
[2017-07-10] MEDS: METOPROLOL 25 MG TAB PO ×2 (08:41→20:21)
[2017-07-10] MEDS: FAMOTIDINE 20 MG TAB PO ×2 (08:41→20:21)
[2017-07-10] MEDS: ACETAMINOPHEN 325 MG TAB PO (11:15)
[2017-07-10] MEDS: FUROSEMIDE 20 MG INJ IV (12:36)
[2017-07-10] MEDS: ENOXAPARIN 40 MG/0.4 ML SYG SC (13:27)
[2017-07-10] MEDS: SOD FERRIC GLUC COMPLX 125 MG in SOD CHLORIDE 0.9% 100 ML IVPB (16:26)
[2017-07-10] MEDS: ONDANSETRON 4 MG INJ IV (19:42)
[2017-07-10] MEDS: ATORVASTATIN 80 MG TAB PO (20:21)
[2017-07-10] MEDS: MAGNESIUM HYDROXIDE 30ML CUP PO (22:19)
[2017-07-11] MEDS: AL HYDROX/MG HYDROX/SIMETH 30 ML CUP PO (01:00)
[2017-07-11] MEDS: HYDROmorphONE 0.5 MG/0.5 ML SYG IV (01:42)
[2017-07-11] MEDS: HYDROCODONE/APAP (5/325) TAB PO (03:23)
[2017-07-11] MEDS: PANTOPRAZOLE 40 MG INJ IV (05:42)
[2017-07-11] MEDS: CEFAZOLIN 1 GM/50 ML (PMX) 50 ML IVPB ×3 (05:42→21:39)
[2017-07-11] MEDS: LEVOTHYROXINE 100 MCG TAB PO (05:42)
[2017-07-11 07:34] LABS: ANION GAP 20 (8-16); BLOOD UREA NITROGEN 22 mg/dl (7-20); CALCIUM 8.5 mg/dl (8.4-10.2); CARBON DIOXIDE 24 mmol/L (21-31); CHLORIDE 104 mmol/L (97-110); CREATININE 1.35 mg/dl (0.61-1.24); GLUCOSE 140 mg/dl (70-220); MAGNESIUM 2.2 mg/dl (1.7-2.5); PHOSPHORUS 3.8 mg/dl (2.5-4.9); SODIUM 144 mmol/L (135-144)
[2017-07-11] MEDS: ASPIRIN 325 MG TAB PO (08:24)
[2017-07-11] MEDS: FAMOTIDINE 20 MG TAB PO ×2 (08:24→20:55)
[2017-07-11] MEDS: METOPROLOL 25 MG TAB PO ×2 (08:25→20:56)
[2017-07-11] MEDS: BENAZEPRIL 10 MG TAB PO (08:25)
[2017-07-11] MEDS: ENOXAPARIN 40 MG/0.4 ML SYG SC (08:29)
[2017-07-11] MEDS: SOD FERRIC GLUC COMPLX 125 MG in SOD CHLORIDE 0.9% 100 ML IVPB (17:06)
[2017-07-11] MEDS: ATORVASTATIN 80 MG TAB PO (20:56)
[2017-07-11] MEDS: ONDANSETRON 4 MG INJ IV (20:57)
[2017-07-12] MEDS: LEVOTHYROXINE 100 MCG TAB PO (05:49)
[2017-07-12] MEDS: CEFAZOLIN 1 GM/50 ML (PMX) 50 ML IVPB ×3 (05:49→21:33)
[2017-07-12] MEDS: PANTOPRAZOLE (EC) 40 MG TAB PO (05:49)
[2017-07-12 07:54] LABS: ADD MAN DIFF? NO
[2017-07-12 08:10] LABS: WHITE BLOOD COUNT 15.4 10^3/ul (4.8-10.8)
[2017-07-12 08:10] LABS: BASOPHILS % 0.1 % (0.0-2.0); EOSINOPHILS % 0.1 % (0.0-7.0); HEMATOCRIT 24.2 % (42.0-52.0); HEMOGLOBIN 7.6 g/dl (14.0-18.0); LYMPHOCYTES # 1.1 10^3/ul (0.8-2.9); LYMPHOCYTES % 7.1 % (15.0-51.0); MEAN CORPUSCULAR HEMOGLOBIN 29.2 pg (29.0-33.0); MEAN CORPUSCULAR HGB CONC 31.4 g/dl (32.0-37.0); MEAN CORPUSCULAR VOLUME 93.1 fl (82.0-101.0); MEAN PLATELET VOLUME 10.8 fl (7.4-10.4); MONOCYTE # 1.1 10^3/ul (0.3-0.9); MONOCYTES % 7.1 % (0.0-11.0); NEUTROPHIL # 12.6 10^3/ul (1.6-7.5); NUCLEATED RED BLOOD CELLS% 0.3 /100WBC (0.0-0.0); PLATELET COUNT 364 10^3/UL (140-415); RED CELL DISTRIBUTION WIDTH 14.7 % (11.5-14.5)
[2017-07-12 08:37] LABS: ANION GAP 19 (8-16); BLOOD UREA NITROGEN 37 mg/dl (7-20); CALCIUM 8.2 mg/dl (8.4-10.2); CARBON DIOXIDE 23 mmol/L (21-31); CHLORIDE 103 mmol/L (97-110); GLUCOSE 114 mg/dl (70-220); MAGNESIUM 2.4 mg/dl (1.7-2.5); PHOSPHORUS 4.3 mg/dl (2.5-4.9); POTASSIUM 4.8 mmol/L (3.5-5.1); SODIUM 140 mmol/L (135-144)
[2017-07-12] MEDS: METOPROLOL 25 MG TAB PO ×2 (09:00→20:32)
[2017-07-12] MEDS: DOCUSATE SODIUM 100 MG CAP PO (09:46)
[2017-07-12] MEDS: BISACODYL 10 MG SUPP PR (09:46)
[2017-07-12] MEDS: MAGNESIUM HYDROXIDE 30ML CUP PO (09:46)
[2017-07-12] MEDS: FAMOTIDINE 20 MG TAB PO ×2 (09:47→20:31)
[2017-07-12] MEDS: ASPIRIN 325 MG TAB PO (09:47)
[2017-07-12] MEDS: ENOXAPARIN 40 MG/0.4 ML SYG SC (09:52)
[2017-07-12] MEDS: HYDROCORTISONE 100 MG INJ IV (13:19)
[2017-07-12] MEDS: AL HYDROX/MG HYDROX/SIMETH 30 ML CUP PO (13:32)
[2017-07-12] MEDS: HYDROCODONE/APAP (5/325) TAB PO (13:32)
[2017-07-12 14:07] LABS: AADO2 Arterial 187.1 mmHg (7.0-24.0); Allen Test ACCEPTAB; Arterial Base Excess -16.5 mmol/L (-3.0-3); Arterial Blood Gas Oxygen Sat 81.3 mmHG (95.0-98.0); Arterial COHb 0.3 % (0.0-3.0); Arterial Fraction of Oxyhgb 80.5 % (93.0-99.0); Arterial HCO3 8.5 mmol/L (22.0-26.0); Arterial MetHb 0.7 % (0.0-1.5); Arterial Total Hemglobin 2.5 g/dl (12.0-18.0); Arterial pCO2 16.8 mmhg (35-45); MODE NASAL CANNULA; Site Left Radial
[2017-07-12] MEDS: morphine LIQ (10 MG/5 ML) CUP PO (14:19)
[2017-07-12 17:57] LABS: ADD MAN DIFF? NO
[2017-07-12 17:59] LABS: BASOPHILS % 0.2 % (0.0-2.0); HEMOGLOBIN 7.7 g/dl (14.0-18.0); LYMPHOCYTES # 0.8 10^3/ul (0.8-2.9); LYMPHOCYTES % 4.5 % (15.0-51.0); MEAN CORPUSCULAR HEMOGLOBIN 29.6 pg (29.0-33.0); MEAN CORPUSCULAR HGB CONC 32.1 g/dl (32.0-37.0); MEAN CORPUSCULAR VOLUME 92.3 fl (82.0-101.0); MEAN PLATELET VOLUME 10.3 fl (7.4-10.4); MONOCYTE # 0.9 10^3/ul (0.3-0.9); MONOCYTES % 5.3 % (0.0-11.0); NEUTROPHIL # 14.4 10^3/ul (1.6-7.5); NEUTROPHILS % 85.8 % (39.0-77.0); NUCLEATED RED BLOOD CELLS% 0.2 /100WBC (0.0-0.0); PLATELET COUNT 360 10^3/UL (140-415); RED CELL DISTRIBUTION WIDTH 14.9 % (11.5-14.5)
[2017-07-12 17:59] LABS: WHITE BLOOD COUNT 16.7 10^3/ul (4.8-10.8)
[2017-07-12] MEDS: ATORVASTATIN 80 MG TAB PO (20:31)
[2017-07-12] MEDS: SOD CHLORIDE 0.9% 500 ML IV (20:32)
[2017-07-13 01:44] LABS: TROPONIN-I 0.092 ng/ml (0.000-0.120)
[2017-07-13] MEDS: BISACODYL 10 MG SUPP PR (06:30)
[2017-07-13] MEDS: PANTOPRAZOLE (EC) 40 MG TAB PO (06:31)
[2017-07-13] MEDS: LEVOTHYROXINE 100 MCG TAB PO (06:31)
[2017-07-13] MEDS: CEFAZOLIN 1 GM/50 ML (PMX) 50 ML IVPB (06:31)
[2017-07-13] MEDS: HYDROCODONE/APAP (5/325) TAB PO (06:31)
[2017-07-13 06:59] LABS: ADD MAN DIFF? NO
[2017-07-13 07:06] LABS: WHITE BLOOD COUNT 17.6 10^3/ul (4.8-10.8)
[2017-07-13 07:06] LABS: BASOPHILS % 0.1 % (0.0-2.0); EOSINOPHILS % 0.1 % (0.0-7.0); HEMATOCRIT 23.1 % (42.0-52.0); HEMOGLOBIN 7.4 g/dl (14.0-18.0); LYMPHOCYTES # 0.9 10^3/ul (0.8-2.9); LYMPHOCYTES % 5.2 % (15.0-51.0); MEAN CORPUSCULAR HEMOGLOBIN 29.1 pg (29.0-33.0); MEAN CORPUSCULAR VOLUME 90.9 fl (82.0-101.0); MEAN PLATELET VOLUME 10.9 fl (7.4-10.4); MONOCYTE # 1.2 10^3/ul (0.3-0.9); MONOCYTES % 6.5 % (0.0-11.0); NEUTROPHIL # 15.3 10^3/ul (1.6-7.5); NUCLEATED RED BLOOD CELLS% 0.2 /100WBC (0.0-0.0); PLATELET COUNT 376 10^3/UL (140-415); RED BLOOD COUNT 2.54 10^6/ul (4.70-6.10); RED CELL DISTRIBUTION WIDTH 14.9 % (11.5-14.5)
[2017-07-13 07:26] LABS: ALANINE AMINOTRANSFERASE 218 IU/L (13-69); ALBUMIN 3.3 g/dl (3.3-4.9); ALKALINE PHOSPHATASE 605 IU/L (42-121); ANION GAP 15 (8-16); ASPARTATE AMINO TRANSFERASE 415 IU/L (15-46); BILIRUBIN,INDIRECT 0.7 mg/dl (0-1.1); BILIRUBIN,TOTAL 0.8 mg/dl (0.2-1.3); BLOOD UREA NITROGEN 46 mg/dl (7-20); CARBON DIOXIDE 25 mmol/L (21-31); CHLORIDE 102 mmol/L (97-110); CREATININE 2.39 mg/dl (0.61-1.24); GLUCOSE 114 mg/dl (70-220); POTASSIUM 4.1 mmol/L (3.5-5.1); SODIUM 138 mmol/L (135-144); TOTAL PROTEIN 6.6 g/dl (6.1-8.1)
[2017-07-13 07:38] LABS: FREE T4 (FREE THYROXINE) 0.93 ng/dl (0.78-2.44)
[2017-07-13] MEDS: IPRATROPIUM (NEB) 0.5 MG/2.5 ML AMP HHN (08:26)
[2017-07-13] MEDS: FAMOTIDINE 20 MG TAB PO (08:40)
[2017-07-13] MEDS: ASPIRIN 325 MG TAB PO (08:40)
[2017-07-13] MEDS: METOPROLOL 25 MG TAB PO ×2 (08:42→21:10)
[2017-07-13] MEDS: ENOXAPARIN 40 MG/0.4 ML SYG SC (08:48)
[2017-07-13] MEDS ORDERED: ENOXAPARIN 40 MG/0.4 ML SYG SC (10:30)
[2017-07-13] MEDS: CYANOCOBALAMIN 1000 MCG INJ SC (12:57)
[2017-07-13] MEDS: NA PHOSPHATE/BIPHOS 133 ML ENEMA PR (12:57)
[2017-07-13] MEDS: ENOXAPARIN 60 MG/0.6 ML SYG SC (13:01)
[2017-07-13] MEDS: LACTATED RINGER'S 500 ML IV (13:06)
[2017-07-13] MEDS: FUROSEMIDE 20 MG INJ IV (15:06)
[2017-07-13] MEDS: SOD FERRIC GLUC COMPLX 125 MG in SOD CHLORIDE 0.9% 100 ML IVPB (17:18)
[2017-07-13] MEDS ORDERED: ENOXAPARIN 80 MG/0.8 ML SYG SC (21:00)
[2017-07-13] MEDS: ATORVASTATIN 80 MG TAB PO (21:10)
[2017-07-14] MEDS: PANTOPRAZOLE (EC) 40 MG TAB PO (06:05)
[2017-07-14] MEDS: LEVOTHYROXINE 100 MCG TAB PO (06:05)
[2017-07-14 06:40] LABS: ADD MAN DIFF? NO
[2017-07-14 06:42] LABS: WHITE BLOOD COUNT 18.7 10^3/ul (4.8-10.8)
[2017-07-14 06:42] LABS: BASOPHILS % 0.2 % (0.0-2.0); EOSINOPHILS % 0.2 % (0.0-7.0); HEMATOCRIT 22.2 % (42.0-52.0); HEMOGLOBIN 7.1 g/dl (14.0-18.0); LYMPHOCYTES % 5.2 % (15.0-51.0); MEAN CORPUSCULAR HEMOGLOBIN 28.6 pg (29.0-33.0); MEAN CORPUSCULAR VOLUME 89.5 fl (82.0-101.0); MEAN PLATELET VOLUME 10.4 fl (7.4-10.4); MONOCYTE # 0.9 10^3/ul (0.3-0.9); MONOCYTES % 4.7 % (0.0-11.0); NEUTROPHIL # 16.5 10^3/ul (1.6-7.5); NEUTROPHILS % 88.3 % (39.0-77.0); NUCLEATED RED BLOOD CELLS% 0.1 /100WBC (0.0-0.0); PLATELET COUNT 378 10^3/UL (140-415); RED BLOOD COUNT 2.48 10^6/ul (4.70-6.10); RED CELL DISTRIBUTION WIDTH 14.9 % (11.5-14.5)
[2017-07-14 07:09] LABS: ALANINE AMINOTRANSFERASE 228 IU/L (13-69); ALBUMIN 3.1 g/dl (3.3-4.9); ALKALINE PHOSPHATASE 761 IU/L (42-121); ANION GAP 16 (8-16); ASPARTATE AMINO TRANSFERASE 640 IU/L (15-46); BILIRUBIN,INDIRECT 0.7 mg/dl (0-1.1); BILIRUBIN,TOTAL 0.7 mg/dl (0.2-1.3); BLOOD UREA NITROGEN 41 mg/dl (7-20); CALCIUM 7.9 mg/dl (8.4-10.2); CARBON DIOXIDE 24 mmol/L (21-31); CHLORIDE 104 mmol/L (97-110); CREATININE 2.06 mg/dl (0.61-1.24); GLUCOSE 99 mg/dl (70-220); POTASSIUM 4.4 mmol/L (3.5-5.1); SODIUM 140 mmol/L (135-144); TOTAL PROTEIN 6.2 g/dl (6.1-8.1)
[2017-07-14] MEDS: METOPROLOL 25 MG TAB PO ×2 (08:16→21:40)
[2017-07-14] MEDS: ASPIRIN 81 MG TAB PO (08:17)
[2017-07-14] MEDS: FAMOTIDINE 20 MG TAB PO (08:17)
[2017-07-14 12:48] LABS: ADD UMIC YES; UR AMORPHOUS CRYSTAL FEW /HPF (NONE SEEN); UR ASCORBIC ACID NEGATIVE (NEGATIVE); UR BILIRUBIN (Dip) NEGATIVE (NEGATIVE); UR BLOOD (Dip) 2+ mg/dL (NEGATIVE); UR CLARITY CLOUDY (CLEAR); UR COLOR AMBER (YELLOW); UR GLUCOSE (Dip) NEGATIVE (NEGATIVE); UR KETONES (Dip) NEGATIVE (NEGATIVE); UR LEUKOCYTE ESTERASE (Dip) NEGATIVE Leu/ul (NEGATIVE); UR NITRITE (Dip) NEGATIVE (NEGATIVE); UR RBC 2 /HPF (0-5); UR SPECIFIC GRAVITY (Dip) 1.018 (1.003-1.030); UR TOTAL PROTEIN (Dip) 2+ mg/dl (NEGATIVE); UR UROBILINOGEN (Dip) 2+ mg/dL (NEGATIVE); UR WBC 7 /HPF (0-5)
[2017-07-14 12:50] LABS: SODIUM,URINE RANDOM 25 mmol/L (30-90)
[2017-07-14 12:50] LABS: CREATININE,URINE RANDOM 124.98 mg/dl (20-370)
[2017-07-14] MEDS: ENOXAPARIN 100 MG/ML SYG SC (13:11)
[2017-07-14] MEDS: SOD FERRIC GLUC COMPLX 125 MG in SOD CHLORIDE 0.9% 100 ML IVPB (17:00)
[2017-07-15] MEDS: HYDROCODONE/APAP (5/325) TAB PO ×2 (00:08→21:41)
[2017-07-15] MEDS: PANTOPRAZOLE (EC) 40 MG TAB PO (05:45)
[2017-07-15] MEDS: ASPIRIN 81 MG TAB PO (08:27)
[2017-07-15] MEDS: METOPROLOL 25 MG TAB PO ×2 (08:27→22:29)
[2017-07-15] MEDS: FAMOTIDINE 20 MG TAB PO (08:27)
[2017-07-15] MEDS: LEVOTHYROXINE 100 MCG TAB PO (08:42)
[2017-07-15 08:46] LABS: ADD MAN DIFF? NO
[2017-07-15 08:55] LABS: BASOPHILS % 0.1 % (0.0-2.0); EOSINOPHILS # 0.1 10^3/ul (0.0-0.5); EOSINOPHILS % 0.4 % (0.0-7.0); HEMATOCRIT 22.2 % (42.0-52.0); HEMOGLOBIN 7.1 g/dl (14.0-18.0); LYMPHOCYTES # 0.8 10^3/ul (0.8-2.9); LYMPHOCYTES % 4.5 % (15.0-51.0); MEAN CORPUSCULAR HEMOGLOBIN 28.9 pg (29.0-33.0); MEAN CORPUSCULAR VOLUME 90.2 fl (82.0-101.0); MEAN PLATELET VOLUME 10.4 fl (7.4-10.4); MONOCYTE # 0.7 10^3/ul (0.3-0.9); MONOCYTES % 3.9 % (0.0-11.0); NEUTROPHIL # 15.3 10^3/ul (1.6-7.5); NEUTROPHILS % 89.1 % (39.0-77.0); NUCLEATED RED BLOOD CELLS% 0.1 /100WBC (0.0-0.0); PLATELET COUNT 388 10^3/UL (140-415); RED BLOOD COUNT 2.46 10^6/ul (4.70-6.10)
[2017-07-15 08:55] LABS: WHITE BLOOD COUNT 17.1 10^3/ul (4.8-10.8)
[2017-07-15 09:18] LABS: ANION GAP 12 (8-16); BLOOD UREA NITROGEN 38 mg/dl (7-20); CARBON DIOXIDE 27 mmol/L (21-31); CHLORIDE 106 mmol/L (97-110); CREATININE 1.74 mg/dl (0.61-1.24); GLUCOSE 103 mg/dl (70-220); MAGNESIUM 3.1 mg/dl (1.7-2.5); PHOSPHORUS 3.7 mg/dl (2.5-4.9); POTASSIUM 4.1 mmol/L (3.5-5.1); SODIUM 141 mmol/L (135-144)
[2017-07-15] MEDS: LIDOCAINE 1% (MDV) 10 ML INJ ×2 (10:40→11:05)
[2017-07-15] MEDS: IOHEXOL 300MG/ML 30 ML BTL (10:41)
[2017-07-15] MEDS: SOD CHLORIDE 0.9% 500 ML (10:41)
[2017-07-15] MEDS: PROPOFOL 0 ML (11:06)
[2017-07-15] MEDS: ROCURONIUM 50 MG INJ (11:06)
[2017-07-15] MEDS: FENTAnyl 50 MCG/ML VIAL ×3 (11:06)
[2017-07-15] MEDS: MIDAZOLAM 1 MG/ML 2 ML INJ (11:08)
[2017-07-15] MEDS: LABETALOL HCL 20MG INJ (11:08)
[2017-07-15] MEDS: CEFAZOLIN 1 GM/50 ML (PMX) 50 ML IVPB (11:30)
[2017-07-15] MEDS: ENOXAPARIN 100 MG/ML SYG SC (13:21)
[2017-07-15 13:41] LABS: CREATININE, RANDOM URINE 138 mg/dL (20-370); MICROALBUMIN 6.3 mg/dL; MICROALBUMIN/CREATININE RATIO 46 (<30)
[2017-07-15] MEDS: SOD FERRIC GLUC COMPLX 125 MG in SOD CHLORIDE 0.9% 100 ML IVPB (17:23)
[2017-07-16] MEDS: LEVOTHYROXINE 100 MCG TAB PO (06:23)
[2017-07-16] MEDS: PANTOPRAZOLE (EC) 40 MG TAB PO (06:23)
[2017-07-16 07:02] LABS: ADD MAN DIFF? NO
[2017-07-16 07:04] LABS: ABNORMAL IP MESSAGE 1; BASOPHILS % 0.3 % (0.0-2.0); EOSINOPHILS # 0.1 10^3/ul (0.0-0.5); HEMATOCRIT 23.5 % (42.0-52.0); HEMOGLOBIN 7.4 g/dl (14.0-18.0); LYMPHOCYTES # 0.9 10^3/ul (0.8-2.9); LYMPHOCYTES % 7.7 % (15.0-51.0); MEAN CORPUSCULAR HEMOGLOBIN 28.8 pg (29.0-33.0); MEAN CORPUSCULAR HGB CONC 31.5 g/dl (32.0-37.0); MEAN CORPUSCULAR VOLUME 91.4 fl (82.0-101.0); MEAN PLATELET VOLUME 10.3 fl (7.4-10.4); MONOCYTE # 0.9 10^3/ul (0.3-0.9); MONOCYTES % 7.6 % (0.0-11.0); NEUTROPHIL # 8.7 10^3/ul (1.6-7.5); NUCLEATED RED BLOOD CELLS% 0.3 /100WBC (0.0-0.0); PLATELET COUNT 356 10^3/UL (140-415); POSITIVE DIFF @See below; RED BLOOD COUNT 2.57 10^6/ul (4.70-6.10); RED CELL DISTRIBUTION WIDTH 15.1 % (11.5-14.5)
[2017-07-16 07:04] LABS: WHITE BLOOD COUNT 11.5 10^3/ul (4.8-10.8)
[2017-07-16 07:45] LABS: ANION GAP 10 (8-16); BLOOD UREA NITROGEN 32 mg/dl (7-20); CALCIUM 7.9 mg/dl (8.4-10.2); CARBON DIOXIDE 29 mmol/L (21-31); CHLORIDE 107 mmol/L (97-110); CREATININE 1.55 mg/dl (0.61-1.24); GLUCOSE 100 mg/dl (70-220); PHOSPHORUS 3.2 mg/dl (2.5-4.9); POTASSIUM 4.1 mmol/L (3.5-5.1); SODIUM 142 mmol/L (135-144)
[2017-07-16 07:48] LABS: ALANINE AMINOTRANSFERASE 168 IU/L (13-69); ALKALINE PHOSPHATASE 1071 IU/L (42-121); ASPARTATE AMINO TRANSFERASE 258 IU/L (15-46); TOTAL PROTEIN 6.2 g/dl (6.1-8.1)
[2017-07-16] MEDS: ASPIRIN 81 MG TAB PO (08:29)
[2017-07-16] MEDS: METOPROLOL 25 MG TAB PO ×2 (08:29→20:40)
[2017-07-16] MEDS: FAMOTIDINE 20 MG TAB PO (08:29)
[2017-07-16] MEDS: ENOXAPARIN 100 MG/ML SYG SC (11:28)
[2017-07-16] MEDS: HYDROCODONE/APAP (5/325) TAB PO ×2 (12:59→20:45)
[2017-07-17] MEDS: PANTOPRAZOLE (EC) 40 MG TAB PO (06:35)
[2017-07-17] MEDS: HYDROCODONE/APAP (5/325) TAB PO ×2 (06:35→20:06)
[2017-07-17] MEDS: LEVOTHYROXINE 100 MCG TAB PO (06:35)
[2017-07-17] MEDS: ASPIRIN 81 MG TAB PO (08:15)
[2017-07-17] MEDS: FAMOTIDINE 20 MG TAB PO (08:15)
[2017-07-17] MEDS: METOPROLOL 25 MG TAB PO ×2 (08:15→20:06)
[2017-07-17 09:25] LABS: ALANINE AMINOTRANSFERASE 133 IU/L (13-69); ALKALINE PHOSPHATASE 1060 IU/L (42-121); ASPARTATE AMINO TRANSFERASE 146 IU/L (15-46); BILIRUBIN,INDIRECT 0.8 mg/dl (0-1.1); BILIRUBIN,TOTAL 0.8 mg/dl (0.2-1.3); TOTAL PROTEIN 6.4 g/dl (6.1-8.1)
[2017-07-17 09:49] LABS: ANION GAP 13 (8-16); BLOOD UREA NITROGEN 23 mg/dl (7-20); CALCIUM 7.7 mg/dl (8.4-10.2); CARBON DIOXIDE 26 mmol/L (21-31); CHLORIDE 105 mmol/L (97-110); CREATININE 1.24 mg/dl (0.61-1.24); GLUCOSE 97 mg/dl (70-220); MAGNESIUM 2.5 mg/dl (1.7-2.5); PHOSPHORUS 3.1 mg/dl (2.5-4.9); POTASSIUM 3.8 mmol/L (3.5-5.1); SODIUM 140 mmol/L (135-144)
[2017-07-17] MEDS: FUROSEMIDE 40 MG INJ IV (12:48)
[2017-07-17] MEDS: BISACODYL 10 MG SUPP PR (15:49)
[2017-07-18] MEDS: LEVOTHYROXINE 100 MCG TAB PO (06:14)
[2017-07-18] MEDS: PANTOPRAZOLE (EC) 40 MG TAB PO (06:14)
[2017-07-18] MEDS ORDERED: PENDING SANTYL ORDER FOR WOUND CARE XX (07:30)
[2017-07-18 07:50] LABS: ANION GAP 13 (8-16); BLOOD UREA NITROGEN 22 mg/dl (7-20); CALCIUM 8.1 mg/dl (8.4-10.2); CARBON DIOXIDE 29 mmol/L (21-31); CHLORIDE 105 mmol/L (97-110); CREATININE 1.25 mg/dl (0.61-1.24); GLUCOSE 95 mg/dl (70-220); MAGNESIUM 2.3 mg/dl (1.7-2.5); PHOSPHORUS 3.5 mg/dl (2.5-4.9); POTASSIUM 3.9 mmol/L (3.5-5.1); SODIUM 143 mmol/L (135-144)
[2017-07-18 08:05] LABS: FREE T4 (FREE THYROXINE) 1.15 ng/dl (0.78-2.44)
[2017-07-18 08:06] LABS: FREE T3 2.05 pg/ml (2.77-5.27)
[2017-07-18] MEDS: DOCUSATE SODIUM 100 MG CAP PO (09:49)
[2017-07-18] MEDS: FUROSEMIDE 40 MG INJ IV (09:50)
[2017-07-18] MEDS: METOPROLOL 25 MG TAB PO ×2 (09:50→21:31)
[2017-07-18] MEDS: FAMOTIDINE 20 MG TAB PO (09:50)
[2017-07-18] MEDS: ASPIRIN 81 MG TAB PO (09:50)
[2017-07-18] MEDS: VALACYCLOVIR 500 MG TAB PO ×2 (13:39→21:31)
[2017-07-18] MEDS: HYDROCODONE/APAP (5/325) TAB PO (21:39)
[2017-07-19] MEDS: LEVOTHYROXINE 100 MCG TAB PO (05:27)
[2017-07-19] MEDS: PANTOPRAZOLE (EC) 40 MG TAB PO (05:28)
[2017-07-19] MEDS: VALACYCLOVIR 500 MG TAB PO ×3 (05:28→21:00)
[2017-07-19 07:51] LABS: ANION GAP 12 (8-16); BLOOD UREA NITROGEN 20 mg/dl (7-20); CALCIUM 8.2 mg/dl (8.4-10.2); CARBON DIOXIDE 28 mmol/L (21-31); CHLORIDE 104 mmol/L (97-110); CREATININE 1.25 mg/dl (0.61-1.24); GLUCOSE 99 mg/dl (70-220); MAGNESIUM 2.1 mg/dl (1.7-2.5); PHOSPHORUS 3.6 mg/dl (2.5-4.9); POTASSIUM 3.6 mmol/L (3.5-5.1); SODIUM 140 mmol/L (135-144)
[2017-07-19 07:52] LABS: ALANINE AMINOTRANSFERASE 121 IU/L (13-69); ALBUMIN 3.2 g/dl (3.3-4.9); ALKALINE PHOSPHATASE 758 IU/L (42-121); ASPARTATE AMINO TRANSFERASE 107 IU/L (15-46); BILIRUBIN,INDIRECT 0.6 mg/dl (0-1.1); BILIRUBIN,TOTAL 0.6 mg/dl (0.2-1.3); TOTAL PROTEIN 6.9 g/dl (6.1-8.1)
[2017-07-19] MEDS: FAMOTIDINE 20 MG TAB PO (08:20)
[2017-07-19] MEDS: ASPIRIN 81 MG TAB PO (08:20)
[2017-07-19] MEDS: FUROSEMIDE 40 MG INJ IV (08:20)
[2017-07-19] MEDS: METOPROLOL 25 MG TAB PO ×2 (08:21→21:00)
[2017-07-19] MEDS: IPRATROPIUM (NEB) 0.5 MG/2.5 ML AMP HHN (20:57)
[2017-07-19] MEDS: HYDROCODONE/APAP (5/325) TAB PO (21:00)
[2017-07-20] MEDS: GUAIFENESIN 20 MG/ML 5ML CUP PO (01:01)
[2017-07-20] MEDS: VALACYCLOVIR 500 MG TAB PO ×3 (05:17→20:11)
[2017-07-20] MEDS: LEVOTHYROXINE 100 MCG TAB PO (05:18)
[2017-07-20] MEDS: PANTOPRAZOLE (EC) 40 MG TAB PO (05:18)
[2017-07-20] MEDS: METOPROLOL 25 MG TAB PO ×2 (08:43→20:12)
[2017-07-20] MEDS: FUROSEMIDE 40 MG INJ IV (08:43)
[2017-07-20] MEDS: ASPIRIN 81 MG TAB PO (08:43)
[2017-07-20] MEDS: FAMOTIDINE 20 MG TAB PO (08:43)
[2017-07-20 14:00] LABS: ADD MAN DIFF? NO
[2017-07-20 14:01] LABS: BASOPHILS % 0.4 % (0.0-2.0); EOSINOPHILS # 0.1 10^3/ul (0.0-0.5); HEMATOCRIT 23.3 % (42.0-52.0); HEMOGLOBIN 7.1 g/dl (14.0-18.0); LYMPHOCYTES # 1.7 10^3/ul (0.8-2.9); LYMPHOCYTES % 22.9 % (15.0-51.0); MEAN CORPUSCULAR HEMOGLOBIN 28.4 pg (29.0-33.0); MEAN CORPUSCULAR HGB CONC 30.5 g/dl (32.0-37.0); MEAN CORPUSCULAR VOLUME 93.2 fl (82.0-101.0); MEAN PLATELET VOLUME 9.5 fl (7.4-10.4); MONOCYTE # 0.8 10^3/ul (0.3-0.9); MONOCYTES % 10.4 % (0.0-11.0); NEUTROPHIL # 4.5 10^3/ul (1.6-7.5); NUCLEATED RED BLOOD CELLS% 0.3 /100WBC (0.0-0.0); PLATELET COUNT 365 10^3/UL (140-415); RED CELL DISTRIBUTION WIDTH 15.7 % (11.5-14.5)
[2017-07-20 14:01] LABS: WHITE BLOOD COUNT 7.2 10^3/ul (4.8-10.8)
[2017-07-20 14:27] LABS: ANION GAP 12 (8-16); BLOOD UREA NITROGEN 18 mg/dl (7-20); CALCIUM 8.5 mg/dl (8.4-10.2); CARBON DIOXIDE 27 mmol/L (21-31); CHLORIDE 105 mmol/L (97-110); CREATININE 1.17 mg/dl (0.61-1.24); GLUCOSE 109 mg/dl (70-220); POTASSIUM 3.7 mmol/L (3.5-5.1); SODIUM 140 mmol/L (135-144)
[2017-07-20] MEDS: OXYCODONE/ACETAMINOPHEN (5/325) TAB PO (16:54)
[2017-07-20] MEDS: HYDROCODONE/APAP (5/325) TAB PO (21:39)
[2017-07-21] MEDS: PANTOPRAZOLE (EC) 40 MG TAB PO (05:59)
[2017-07-21] MEDS: LEVOTHYROXINE 100 MCG TAB PO (05:59)
[2017-07-21] MEDS: VALACYCLOVIR 500 MG TAB PO ×3 (05:59→21:18)
[2017-07-21 07:22] LABS: ADD MAN DIFF? NO
[2017-07-21 07:28] LABS: WHITE BLOOD COUNT 6.6 10^3/ul (4.8-10.8)
[2017-07-21 07:28] LABS: ABNORMAL IP MESSAGE 1; BASOPHILS % 0.5 % (0.0-2.0); EOSINOPHILS # 0.1 10^3/ul (0.0-0.5); EOSINOPHILS % 1.2 % (0.0-7.0); HEMATOCRIT 22.9 % (42.0-52.0); LYMPHOCYTES # 1.6 10^3/ul (0.8-2.9); LYMPHOCYTES % 24.7 % (15.0-51.0); MEAN CORPUSCULAR HGB CONC 30.1 g/dl (32.0-37.0); MEAN CORPUSCULAR VOLUME 93.1 fl (82.0-101.0); MEAN PLATELET VOLUME 9.9 fl (7.4-10.4); MONOCYTE # 0.5 10^3/ul (0.3-0.9); NEUTROPHIL # 4.2 10^3/ul (1.6-7.5); NEUTROPHILS % 62.7 % (39.0-77.0); NUCLEATED RED BLOOD CELLS% 0.3 /100WBC (0.0-0.0); PLATELET COUNT 360 10^3/UL (140-415); POSITIVE DIFF @See below; RED BLOOD COUNT 2.46 10^6/ul (4.70-6.10); RED CELL DISTRIBUTION WIDTH 15.7 % (11.5-14.5)
[2017-07-21 07:35] LABS: HEMOGLOBIN 6.9 g/dl (14.0-18.0); PATH REVIEW? YES
[2017-07-21 07:52] LABS: ALANINE AMINOTRANSFERASE 77 IU/L (13-69); ALBUMIN 3.2 g/dl (3.3-4.9); ALKALINE PHOSPHATASE 538 IU/L (42-121); ANION GAP 11 (8-16); ASPARTATE AMINO TRANSFERASE 44 IU/L (15-46); BILIRUBIN,INDIRECT 0.6 mg/dl (0-1.1); BILIRUBIN,TOTAL 0.6 mg/dl (0.2-1.3); BLOOD UREA NITROGEN 18 mg/dl (7-20); CALCIUM 8.4 mg/dl (8.4-10.2); CARBON DIOXIDE 28 mmol/L (21-31); CHLORIDE 105 mmol/L (97-110); CREATININE 1.13 mg/dl (0.61-1.24); GLUCOSE 95 mg/dl (70-220); SODIUM 140 mmol/L (135-144)
[2017-07-21 07:53] LABS: ALBUMIN/GLOBULIN RATIO 0.84
[2017-07-21] MEDS: ASPIRIN 81 MG TAB PO (08:45)
[2017-07-21] MEDS: FAMOTIDINE 20 MG TAB PO (08:46)
[2017-07-21] MEDS: FUROSEMIDE 40 MG INJ IV (08:46)
[2017-07-21] MEDS: METOPROLOL 25 MG TAB PO ×2 (08:46→21:19)
[2017-07-21 09:49] LABS: HEMATOCRIT 26.5 % (42.0-52.0)
[2017-07-21] MEDS: HYDROCODONE/APAP (5/325) TAB PO (21:18)
[2017-07-22] MEDS: LEVOTHYROXINE 100 MCG TAB PO (05:39)
[2017-07-22] MEDS: VALACYCLOVIR 500 MG TAB PO ×3 (05:40→21:33)
[2017-07-22] MEDS: PANTOPRAZOLE (EC) 40 MG TAB PO (05:40)
[2017-07-22 07:06] LABS: ADD MAN DIFF? NO
[2017-07-22 07:10] LABS: BASOPHILS % 0.6 % (0.0-2.0); EOSINOPHILS # 0.1 10^3/ul (0.0-0.5); EOSINOPHILS % 0.8 % (0.0-7.0); HEMATOCRIT 24.4 % (42.0-52.0); HEMOGLOBIN 7.3 g/dl (14.0-18.0); LYMPHOCYTES # 1.9 10^3/ul (0.8-2.9); LYMPHOCYTES % 27.2 % (15.0-51.0); MEAN CORPUSCULAR HEMOGLOBIN 27.9 pg (29.0-33.0); MEAN CORPUSCULAR HGB CONC 29.9 g/dl (32.0-37.0); MEAN CORPUSCULAR VOLUME 93.1 fl (82.0-101.0); MEAN PLATELET VOLUME 9.2 fl (7.4-10.4); MONOCYTE # 0.6 10^3/ul (0.3-0.9); MONOCYTES % 8.4 % (0.0-11.0); NEUTROPHIL # 4.3 10^3/ul (1.6-7.5); NEUTROPHILS % 60.5 % (39.0-77.0); PLATELET COUNT 355 10^3/UL (140-415); RED BLOOD COUNT 2.62 10^6/ul (4.70-6.10); RED CELL DISTRIBUTION WIDTH 15.5 % (11.5-14.5)
[2017-07-22 07:10] LABS: WHITE BLOOD COUNT 7.1 10^3/ul (4.8-10.8)
[2017-07-22 07:34] LABS: ANION GAP 10 (8-16); BLOOD UREA NITROGEN 18 mg/dl (7-20); CALCIUM 8.5 mg/dl (8.4-10.2); CARBON DIOXIDE 29 mmol/L (21-31); CHLORIDE 105 mmol/L (97-110); CREATININE 1.17 mg/dl (0.61-1.24); GLUCOSE 103 mg/dl (70-220); MAGNESIUM 2.2 mg/dl (1.7-2.5); PHOSPHORUS 3.4 mg/dl (2.5-4.9); POTASSIUM 4.1 mmol/L (3.5-5.1); SODIUM 140 mmol/L (135-144)
[2017-07-22] MEDS: ASPIRIN 81 MG TAB PO (10:13)
[2017-07-22] MEDS: METOPROLOL 25 MG TAB PO ×2 (10:14→20:49)
[2017-07-22] MEDS: FUROSEMIDE 40 MG INJ IV (10:14)
[2017-07-22] MEDS: FAMOTIDINE 20 MG TAB PO (10:14)
[2017-07-22] MEDS: DOCUSATE SODIUM 100 MG CAP PO (20:48)
[2017-07-22] MEDS: HYDROCODONE/APAP (5/325) TAB PO (20:48)
[2017-07-23] MEDS: VALACYCLOVIR 500 MG TAB PO ×2 (06:50→14:00)
[2017-07-23] MEDS: LEVOTHYROXINE 100 MCG TAB PO (06:50)
[2017-07-23] MEDS: PANTOPRAZOLE (EC) 40 MG TAB PO (06:50)
[2017-07-23 07:16] LABS: ADD MAN DIFF? NO
[2017-07-23 07:19] LABS: BASOPHILS % 0.4 % (0.0-2.0); EOSINOPHILS # 0.1 10^3/ul (0.0-0.5); EOSINOPHILS % 0.7 % (0.0-7.0); HEMATOCRIT 26.1 % (42.0-52.0); HEMOGLOBIN 7.9 g/dl (14.0-18.0); LYMPHOCYTES # 1.6 10^3/ul (0.8-2.9); LYMPHOCYTES % 17.1 % (15.0-51.0); MEAN CORPUSCULAR HGB CONC 30.3 g/dl (32.0-37.0); MEAN CORPUSCULAR VOLUME 92.6 fl (82.0-101.0); MEAN PLATELET VOLUME 9.7 fl (7.4-10.4); MONOCYTE # 0.5 10^3/ul (0.3-0.9); MONOCYTES % 5.7 % (0.0-11.0); NEUTROPHIL # 7.1 10^3/ul (1.6-7.5); NEUTROPHILS % 74.8 % (39.0-77.0); PLATELET COUNT 392 10^3/UL (140-415); RED BLOOD COUNT 2.82 10^6/ul (4.70-6.10); RED CELL DISTRIBUTION WIDTH 15.6 % (11.5-14.5)
[2017-07-23 07:19] LABS: WHITE BLOOD COUNT 9.5 10^3/ul (4.8-10.8)
[2017-07-23 07:42] LABS: MAGNESIUM 2.1 mg/dl (1.7-2.5)
[2017-07-23 07:42] LABS: PHOSPHORUS 3.4 mg/dl (2.5-4.9)
[2017-07-23 07:52] LABS: ANION GAP 13 (8-16); BLOOD UREA NITROGEN 20 mg/dl (7-20); CALCIUM 8.8 mg/dl (8.4-10.2); CARBON DIOXIDE 27 mmol/L (21-31); CHLORIDE 105 mmol/L (97-110); CREATININE 1.17 mg/dl (0.61-1.24); GLUCOSE 97 mg/dl (70-220); POTASSIUM 4.5 mmol/L (3.5-5.1); SODIUM 140 mmol/L (135-144)
[2017-07-23] MEDS: FUROSEMIDE 40 MG INJ IV (09:07)
[2017-07-23] MEDS: FAMOTIDINE 20 MG TAB PO (09:08)
[2017-07-23] MEDS: METOPROLOL 25 MG TAB PO (09:08)
[2017-07-23] MEDS: ASPIRIN 81 MG TAB PO (09:08)
[2017-07-23 15:29] LABS: ALANINE AMINOTRANSFERASE 108 IU/L (13-69); ALBUMIN 3.4 g/dl (3.3-4.9); ALKALINE PHOSPHATASE 466 IU/L (42-121); ASPARTATE AMINO TRANSFERASE 28 IU/L (15-46); BILIRUBIN,INDIRECT 0.6 mg/dl (0-1.1); BILIRUBIN,TOTAL 0.6 mg/dl (0.2-1.3)
== END 2017-07-23 17:00 | disposition home health service (06) | DRG 233 ==
LOC: TEL 13:51 → ICU 07-05 07:44 → TEL 07-07 15:10 → E/R 11:47
PROC: 4A023N7 Measurement of Cardiac Sampling and Pressure, Left Heart, Percutaneous Approach (ICD-10-PCS; 2017-07-03 12:00)
PROC: B211YZZ Fluoroscopy of Multiple Coronary Arteries using Other Contrast (ICD-10-PCS; 2017-07-03 12:00)
PROC: B215YZZ Fluoroscopy of Left Heart using Other Contrast (ICD-10-PCS; 2017-07-03 12:00)
PROC: 021109W Bypass Coronary Artery, Two Arteries from Aorta with Autologous Venous Tissue, Open Approach (ICD-10-PCS; principal; 2017-07-03 12:55)
PROC: 02100Z9 Bypass Coronary Artery, One Artery from Left Internal Mammary, Open Approach (ICD-10-PCS; 2017-07-03 12:55)
PROC: 06BP4ZZ Excision of Right Saphenous Vein, Percutaneous Endoscopic Approach (ICD-10-PCS; 2017-07-03 12:55)
PROC: 0F9430Z Drainage of Gallbladder with Drainage Device, Percutaneous Approach (ICD-10-PCS; 2017-07-03 12:55)
PROC: 5A1221Z Performance of Cardiac Output, Continuous (ICD-10-PCS; 2017-07-03 12:55)
PROC: 30233R1 Transfusion of Nonautologous Platelets into Peripheral Vein, Percutaneous Approach (ICD-10-PCS; 2017-07-03 12:55)
PROC: 30233N1 Transfusion of Nonautologous Red Blood Cells into Peripheral Vein, Percutaneous Approach (ICD-10-PCS; 2017-07-03 12:55)
DX: I21.4 Non-ST elevation (NSTEMI) myocardial infarction (principal); J96.01 Acute respiratory failure with hypoxia; J18.9 Pneumonia, unspecified organism; N17.9 Acute kidney failure, unspecified; I42.9 Cardiomyopathy, unspecified; D62 Acute posthemorrhagic anemia; E87.0 Hyperosmolality and hypernatremia; I82.C11 Acute embolism and thrombosis of right internal jugular vein; T80.1XXA Vascular complications following infusion, transfusion and therapeutic injection, initial encounter; L03.113 Cellulitis of right upper limb; E78.5 Hyperlipidemia, unspecified; K80.00 Calculus of gallbladder with acute cholecystitis without obstruction; E03.9 Hypothyroidism, unspecified; I25.10 Atherosclerotic heart disease of native coronary artery without angina pectoris; I80.8 Phlebitis and thrombophlebitis of other sites; B02.9 Zoster without complications; E83.9 Disorder of mineral metabolism, unspecified; E66.9 Obesity, unspecified; I11.0 Hypertensive heart disease with heart failure; I50.9 Heart failure, unspecified; R74.0 Nonspecific elevation of levels of transaminase and lactic acid dehydrogenase [LDH]; Z68.26 Body mass index [BMI] 26.0-26.9, adult
CPT/HCPCS: 36415; 36430; 36592; 36600; 71045; 71250; 75982; 76700; 76775; 76942; 78226; 78582; 80048; 80053; 80061; 80076; 80307; 81001; 81003; 82043; 82533; 82550; 82553; 82728; 82803; 82962; 83036; 83540; 83735; 84100; 84155; 84300; 84436; 84439; 84443; 84479; 84481; 84484; 85014; 85018; 85025; 85610; 85730; 86803; 86850; 86900; 86901; 86920; 87040; 87070; 87081; 87340; 93005; 93306; 93312; 93325; 93458; 93880; 93971; 94002; 94003; 94640; 94770; 96374; 96375; 97110; 97116; 97162; 97530; 99285-25

== ENCOUNTER 2017-09-01 08:52 | Emergency (ER) | payer MEDICARE, OTHER | END 2017-09-01 10:50 | disposition home or self-care (01) | LOC: FTE 08:52 | DX: Z48.01 Encounter for change or removal of surgical wound dressing (principal); I10 Essential (primary) hypertension; I25.10 Atherosclerotic heart disease of native coronary artery without angina pectoris; E66.9 Obesity, unspecified; Z79.82 Long term (current) use of aspirin; Z87.891 Personal history of nicotine dependence; Z95.1 Presence of aortocoronary bypass graft | CPT/HCPCS: 99281 ==

== ENCOUNTER 2018-02-04 15:12 | Observation (INO) | payer MEDICARE, OTHER ==
[2018-02-04 21:24] LABS: ADD MAN DIFF? NO
[2018-02-04 21:27] LABS: ABNORMAL IP MESSAGE 1; BASOPHIL # 0.1 10^3/ul (0.0-0.1); BASOPHILS % 0.7 % (0.0-2.0); EOSINOPHILS # 0.2 10^3/ul (0.0-0.5); EOSINOPHILS % 1.9 % (0.0-7.0); HEMATOCRIT 39.9 % (42.0-52.0); HEMOGLOBIN 11.5 g/dl (14.0-18.0); LYMPHOCYTES # 2.7 10^3/ul (0.8-2.9); LYMPHOCYTES % 32.6 % (15.0-51.0); MEAN CORPUSCULAR HEMOGLOBIN 24.2 pg (29.0-33.0); MEAN CORPUSCULAR HGB CONC 28.8 g/dl (32.0-37.0); MEAN CORPUSCULAR VOLUME 83.8 fl (82.0-101.0); MEAN PLATELET VOLUME 10.5 fl (7.4-10.4); MONOCYTE # 0.5 10^3/ul (0.3-0.9); MONOCYTES % 6.2 % (0.0-11.0); NEUTROPHIL # 4.8 10^3/ul (1.6-7.5); NEUTROPHILS % 58.4 % (39.0-77.0); PLATELET COUNT 229 10^3/UL (140-415); POSITIVE DIFF @See below; RED BLOOD COUNT 4.76 10^6/ul (4.70-6.10); RED CELL DISTRIBUTION WIDTH 17.2 % (11.5-14.5)
[2018-02-04 21:27] LABS: WHITE BLOOD COUNT 8.2 10^3/ul (4.8-10.8)
[2018-02-04 21:31] LABS: ADD UMIC NO; UR ASCORBIC ACID NEGATIVE (NEGATIVE); UR BILIRUBIN (Dip) NEGATIVE (NEGATIVE); UR BLOOD (Dip) NEGATIVE (NEGATIVE); UR CLARITY CLEAR (CLEAR); UR COLOR YELLOW (YELLOW); UR GLUCOSE (Dip) NEGATIVE (NEGATIVE); UR KETONES (Dip) NEGATIVE (NEGATIVE); UR LEUKOCYTE ESTERASE (Dip) NEGATIVE Leu/ul (NEGATIVE); UR NITRITE (Dip) NEGATIVE (NEGATIVE); UR SPECIFIC GRAVITY (Dip) 1.013 (1.003-1.030); UR TOTAL PROTEIN (Dip) NEGATIVE (NEGATIVE); UR UROBILINOGEN (Dip) NEGATIVE (NEGATIVE)
[2018-02-04 21:46] LABS: INR 1.03; PROTIME 13.6 Sec (11.9-14.9); PT RATIO 1.1
[2018-02-04 21:47] LABS: PARTIAL THROMBOPLASTIN TIME 32.1 Sec (23.0-35.0)
[2018-02-04 21:51] LABS: ALANINE AMINOTRANSFERASE 14 IU/L (13-69); ALBUMIN 4.2 g/dl (3.3-4.9); ALBUMIN/GLOBULIN RATIO 0.97; ALKALINE PHOSPHATASE 172 IU/L (42-121); ANION GAP 11 (5-13); ASPARTATE AMINO TRANSFERASE 21 IU/L (15-46); BILIRUBIN,INDIRECT 0.4 mg/dl (0-1.1); BILIRUBIN,TOTAL 0.4 mg/dl (0.2-1.3); BLOOD UREA NITROGEN 13 mg/dl (7-20); CALCIUM 9.3 mg/dl (8.4-10.2); CARBON DIOXIDE 26 mmol/L (21-31); CHLORIDE 108 mmol/L (97-110); CREATININE 1.05 mg/dl (0.61-1.24); Estimated GFR > 60 mL/min (>60); GLUCOSE 93 mg/dl (70-220); LIPASE 123 U/L (23-300); POTASSIUM 4.3 mmol/L (3.5-5.1); SODIUM 145 mmol/L (135-144); TOTAL PROTEIN 8.5 g/dl (6.1-8.1)
[2018-02-05] MEDS ORDERED: ACETAMINOPHEN 325 MG TAB PO
[2018-02-05] MEDS ORDERED: NACL 0.9% 3 ML SYG IV
[2018-02-05] MEDS ORDERED: ONDANSETRON 4 MG INJ IV
[2018-02-05] MEDS: SOD CHLORIDE 0.9% 1,000 ML IV ×2 (03:05→14:11)
[2018-02-05] MEDS: LEVOTHYROXINE 100 MCG TAB PO (06:05)
[2018-02-05] MEDS: PANTOPRAZOLE (EC) 40 MG TAB PO (06:05)
[2018-02-05 06:44] LABS: ADD MAN DIFF? NO
[2018-02-05 07:01] LABS: BASOPHIL # 0.1 10^3/ul (0.0-0.1); BASOPHILS % 0.9 % (0.0-2.0); EOSINOPHILS # 0.2 10^3/ul (0.0-0.5); EOSINOPHILS % 2.7 % (0.0-7.0); HEMATOCRIT 34.9 % (42.0-52.0); HEMOGLOBIN 10.3 g/dl (14.0-18.0); LYMPHOCYTES # 1.7 10^3/ul (0.8-2.9); LYMPHOCYTES % 23.5 % (15.0-51.0); MEAN CORPUSCULAR HEMOGLOBIN 24.4 pg (29.0-33.0); MEAN CORPUSCULAR HGB CONC 29.5 g/dl (32.0-37.0); MEAN CORPUSCULAR VOLUME 82.7 fl (82.0-101.0); MEAN PLATELET VOLUME 10.9 fl (7.4-10.4); MONOCYTE # 0.6 10^3/ul (0.3-0.9); MONOCYTES % 8.3 % (0.0-11.0); NEUTROPHIL # 4.5 10^3/ul (1.6-7.5); NEUTROPHILS % 64.3 % (39.0-77.0); PLATELET COUNT 261 10^3/UL (140-415); RED BLOOD COUNT 4.22 10^6/ul (4.70-6.10); RED CELL DISTRIBUTION WIDTH 17.2 % (11.5-14.5)
[2018-02-05 07:36] LABS: ALANINE AMINOTRANSFERASE 9 IU/L (13-69); ALBUMIN 3.5 g/dl (3.3-4.9); ALBUMIN/GLOBULIN RATIO 1.09; ALKALINE PHOSPHATASE 121 IU/L (42-121); ANION GAP 11 (5-13); ASPARTATE AMINO TRANSFERASE 16 IU/L (15-46); BILIRUBIN,INDIRECT 0.3 mg/dl (0-1.1); BILIRUBIN,TOTAL 0.3 mg/dl (0.2-1.3); BLOOD UREA NITROGEN 15 mg/dl (7-20); CALCIUM 8.8 mg/dl (8.4-10.2); CARBON DIOXIDE 26 mmol/L (21-31); CHLORIDE 108 mmol/L (97-110); CHOL/HDL RATIO 3.9 RATIO; CHOLESTEROL 117 mg/dl (100-200); CREATININE 1.02 mg/dl (0.61-1.24); Estimated GFR > 60 mL/min (>60); GLUCOSE 106 mg/dl (70-220); HDL CHOLESTEROL 30 mg/dl (30-78); LDL CHOLESTEROL,CALCULATED 69 mg/dl; MAGNESIUM 2.1 mg/dl (1.7-2.5); POTASSIUM 3.8 mmol/L (3.5-5.1); SODIUM 145 mmol/L (135-144); TOTAL PROTEIN 6.7 g/dl (6.1-8.1); TRIGLYCERIDES 88 mg/dl (0-149)
[2018-02-05 07:46] LABS: HEMOGLOBIN A1C 5.3 % (0-5.9)
[2018-02-05] MEDS ORDERED: NON-FORMULARY/PATIENT OWN MED (Omeprazole* 20 MG) PO (09:00)
[2018-02-05] MEDS: METOPROLOL 25 MG TAB PO (09:00)
[2018-02-05] MEDS: LISINOPRIL 20 MG TAB PO (11:12)
[2018-02-05] MEDS: ASPIRIN 81 MG TAB PO (11:12)
[2018-02-05] MEDS ORDERED: TAMSULOSIN (SR) 0.4 MG CAP PO (21:00)
[2018-02-05] MEDS ORDERED: ATORVASTATIN 20 MG TAB PO (21:00)
== END 2018-02-05 20:20 | disposition home or self-care (01) ==
LOC: PP2 23:37 → E/R 15:12
DX: K91.89 Other postprocedural complications and disorders of digestive system (principal); Z79.82 Long term (current) use of aspirin; I25.10 Atherosclerotic heart disease of native coronary artery without angina pectoris; Z95.1 Presence of aortocoronary bypass graft; E78.5 Hyperlipidemia, unspecified; E03.9 Hypothyroidism, unspecified; I10 Essential (primary) hypertension; N40.0 Benign prostatic hyperplasia without lower urinary tract symptoms; D64.9 Anemia, unspecified; Y83.8 Other surgical procedures as the cause of abnormal reaction of the patient, or of later complication, without mention of misadventure at the time of the procedure
CPT/HCPCS: 36415; 74176; 78226; 80053; 80061; 81003; 83036; 83690; 83735; 84443; 85025; 85610; 85730; 99285-25; G0378

== ENCOUNTER 2018-03-04 19:46 | Observation (INO) | payer OTHER, MEDICARE ==
[2018-03-05 03:17] LABS: ADD MAN DIFF? NO
[2018-03-05 03:18] LABS: WHITE BLOOD COUNT 7.8 10^3/ul (4.8-10.8)
[2018-03-05 03:18] LABS: BASOPHIL # 0.1 10^3/ul (0.0-0.1); BASOPHILS % 0.8 % (0.0-2.0); EOSINOPHILS # 0.2 10^3/ul (0.0-0.5); EOSINOPHILS % 2.4 % (0.0-7.0); HEMATOCRIT 36.5 % (42.0-52.0); HEMOGLOBIN 10.8 g/dl (14.0-18.0); LYMPHOCYTES # 2.4 10^3/ul (0.8-2.9); LYMPHOCYTES % 30.4 % (15.0-51.0); MEAN CORPUSCULAR HEMOGLOBIN 24.2 pg (29.0-33.0); MEAN CORPUSCULAR HGB CONC 29.6 g/dl (32.0-37.0); MEAN CORPUSCULAR VOLUME 81.7 fl (82.0-101.0); MEAN PLATELET VOLUME 9.7 fl (7.4-10.4); MONOCYTE # 0.6 10^3/ul (0.3-0.9); MONOCYTES % 7.3 % (0.0-11.0); NEUTROPHIL # 4.6 10^3/ul (1.6-7.5); NEUTROPHILS % 58.7 % (39.0-77.0); PLATELET COUNT 311 10^3/UL (140-415); RED BLOOD COUNT 4.47 10^6/ul (4.70-6.10); RED CELL DISTRIBUTION WIDTH 17.1 % (11.5-14.5)
[2018-03-05 03:39] LABS: ALANINE AMINOTRANSFERASE 11 IU/L (13-69); ALBUMIN 4.2 g/dl (3.3-4.9); ALBUMIN/GLOBULIN RATIO 1.07; ALKALINE PHOSPHATASE 170 IU/L (42-121); ANION GAP 12 (5-13); ASPARTATE AMINO TRANSFERASE 22 IU/L (15-46); BILIRUBIN,INDIRECT 0.1 mg/dl (0-1.1); BILIRUBIN,TOTAL 0.1 mg/dl (0.2-1.3); BLOOD UREA NITROGEN 20 mg/dl (7-20); CALCIUM 9.4 mg/dl (8.4-10.2); CARBON DIOXIDE 26 mmol/L (21-31); CHLORIDE 108 mmol/L (97-110); CREATININE 1.13 mg/dl (0.61-1.24); Estimated GFR > 60 mL/min (>60); GLUCOSE 103 mg/dl (70-220); LIPASE 187 U/L (23-300); POTASSIUM 4.1 mmol/L (3.5-5.1); SODIUM 146 mmol/L (135-144); TOTAL PROTEIN 8.1 g/dl (6.1-8.1)
[2018-03-05 03:42] LABS: INR 1.09; PROTIME 14.2 Sec (11.9-14.9); PT RATIO 1.1
[2018-03-05 03:43] LABS: PARTIAL THROMBOPLASTIN TIME 32.6 Sec (23.0-35.0)
[2018-03-05] MEDS ORDERED: ACETAMINOPHEN 325 MG TAB PO (05:00)
[2018-03-05] MEDS ORDERED: ONDANSETRON 4 MG INJ IV (05:00)
[2018-03-05] MEDS ORDERED: morphine 2 MG INJ IV (05:00)
[2018-03-05] MEDS ORDERED: NACL 0.9% 3 ML SYG IV (05:00)
[2018-03-05] MEDS ORDERED: DOCUSATE SODIUM 100 MG CAP PO (05:00)
[2018-03-05] MEDS ORDERED: BISACODYL (EC) 5 MG TAB PO (05:00)
[2018-03-05] MEDS: SOD CHLORIDE 0.9% 1,000 ML IV ×2 (05:21→17:32)
[2018-03-05] MEDS: PIPER-TAZO 3.375 GM IV (PMX) 100 ML IVPB ×3 (06:33→17:32)
[2018-03-05] MEDS: LIDOCAINE 1% (MPF) 5 ML VIAL (13:26)
[2018-03-06] MEDS: PIPER-TAZO 3.375 GM IV (PMX) 100 ML IVPB ×5 (01:38→23:31)
[2018-03-06 05:24] LABS: ADD MAN DIFF? NO
[2018-03-06 05:27] LABS: WHITE BLOOD COUNT 7.3 10^3/ul (4.8-10.8)
[2018-03-06 05:27] LABS: BASOPHIL # 0.1 10^3/ul (0.0-0.1); BASOPHILS % 0.8 % (0.0-2.0); EOSINOPHILS # 0.2 10^3/ul (0.0-0.5); EOSINOPHILS % 2.3 % (0.0-7.0); HEMOGLOBIN 10.1 g/dl (14.0-18.0); LYMPHOCYTES # 1.8 10^3/ul (0.8-2.9); MEAN CORPUSCULAR HEMOGLOBIN 24.3 pg (29.0-33.0); MEAN CORPUSCULAR HGB CONC 29.7 g/dl (32.0-37.0); MEAN CORPUSCULAR VOLUME 81.7 fl (82.0-101.0); MEAN PLATELET VOLUME 10.5 fl (7.4-10.4); MONOCYTE # 0.5 10^3/ul (0.3-0.9); MONOCYTES % 7.4 % (0.0-11.0); NEUTROPHIL # 4.6 10^3/ul (1.6-7.5); NEUTROPHILS % 64.1 % (39.0-77.0); PLATELET COUNT 302 10^3/UL (140-415); RED BLOOD COUNT 4.16 10^6/ul (4.70-6.10); RED CELL DISTRIBUTION WIDTH 17.3 % (11.5-14.5)
[2018-03-06 06:03] LABS: ALANINE AMINOTRANSFERASE 17 IU/L (13-69); ALBUMIN 3.4 g/dl (3.3-4.9); ALBUMIN/GLOBULIN RATIO 1.09; ALKALINE PHOSPHATASE 139 IU/L (42-121); ANION GAP 8 (5-13); ASPARTATE AMINO TRANSFERASE 17 IU/L (15-46); BILIRUBIN,INDIRECT 0.1 mg/dl (0-1.1); BILIRUBIN,TOTAL 0.1 mg/dl (0.2-1.3); BLOOD UREA NITROGEN 18 mg/dl (7-20); CALCIUM 9.1 mg/dl (8.4-10.2); CARBON DIOXIDE 28 mmol/L (21-31); CHLORIDE 109 mmol/L (97-110); CREATININE 1.26 mg/dl (0.61-1.24); Estimated GFR 57 mL/min (>60); GLUCOSE 112 mg/dl (70-220); MAGNESIUM 2.2 mg/dl (1.7-2.5); POTASSIUM 4.7 mmol/L (3.5-5.1); SODIUM 145 mmol/L (135-144); TOTAL PROTEIN 6.5 g/dl (6.1-8.1)
[2018-03-06] MEDS: SOD CHLORIDE 0.9% 1,000 ML IV ×2 (06:16→22:37)
[2018-03-06 10:33] LABS: CARCINOEMBRYONIC ANTIGEN 3.5 ng/ml (0.0-5.0)
[2018-03-06 10:39] LABS: CANCER ANTIGEN 19-9 < 1.4 U/ml (0.0-37.0)
[2018-03-07] MEDS: PIPER-TAZO 3.375 GM IV (PMX) 100 ML IVPB (05:41)
[2018-03-07] MEDS: SOD CHLORIDE 0.9% 1,000 ML IV ×2 (06:35→11:45)
== END 2018-03-07 16:35 | disposition home or self-care (01) ==
LOC: E/R 19:46 → MS1 03-05 02:25
DX: L76.82 Other postprocedural complications of skin and subcutaneous tissue (principal); I25.10 Atherosclerotic heart disease of native coronary artery without angina pectoris; I10 Essential (primary) hypertension; Z95.1 Presence of aortocoronary bypass graft; N17.9 Acute kidney failure, unspecified; E78.5 Hyperlipidemia, unspecified; E03.9 Hypothyroidism, unspecified; Z87.891 Personal history of nicotine dependence; Z79.82 Long term (current) use of aspirin; Y83.8 Other surgical procedures as the cause of abnormal reaction of the patient, or of later complication, without mention of misadventure at the time of the procedure
CPT/HCPCS: 36415; 74176; 77012; 80053; 82378; 83690; 83735; 85025; 85610; 85730; 86301; 88307; 88313; 88342; 99285-25